=== PATIENT | female | born 1950 | race Caucasian/White ===

== ENCOUNTER 2020-02-12 14:16 | Emergency (ER) | payer MEDICARE, SELFPAY ==
--- NOTE | ~2020-02-12 | XR_ITS ---
EXAMINATION: XR chest 2V DATE: 02/12/2020 14:43 INDICATION: Shortness of breath and mid chest pressure TECHNIQUE: AP and lateral views of the chest are obtained. COMPARISON: 02/28/2018 FINDINGS: There are minimal airspace opacities of the lung bases. There is no pleural effusion or pne umothorax. The cardiomediastinal silhouette is normal. There are bridging osteophytes at multiple lev els in the spine, consistent with diffuse idiopathic skeletal hyperostosis (DISH). Partially imaged o rthopedic hardware is noted in the proximal right humerus. There are multiple healed left-sided rib f ractures. IMPRESSION: 1. Minimal airspace opacities of the lung bases, consistent with atelectasis versus pneumonia. Reviewed, dictated and finalized at location A. IMPRESSION: 1. Minimal airspace opacities of the lung bases, consistent with atelectasis ve rsus pneumonia.
--- NOTE | 2020-02-12 14:19 | ECG_ITS ---
Measurements Intervals [place] Rate: 110 P: NE: 0 QRS: -26 QRSD: 78 T: 54 QT: 323 QTc: 437 Interpretive Statements ECTOPIC ATRIAL OR JUNCTIONAL TACHYCARDIA LOW QRS VOLTAGE IN PRECORDIAL LEADS CANNOT RULE OUT SEPTAL INFARCT, AGE INDETERMINATE INFERIOR INFARCT, AGE INDETERMINATE BORDERLINE ST-T WAVE ABNORMALITY- HIGH LATERAL LEADS BASELINE ARTIFACT- I, II, AVR, V5 ABNORMAL ECG Electronically Signed On 02-12-2020 14:29:30 CDT by Iván Mclaughlin D.O.
[2020-02-12 14:20] VITALS: BP 147/84; PULSE 101; PULSE 110; RESP 30; RESP 37; TEMP 36.8; O2SAT 98
[2020-02-12 14:44] LABS: Basophils Absolute Auto 0.1 K/mm3 (0.0-0.1); Basophils Percent Auto 0.9 % (0.2-1.2); Eosinophils Absolute Auto 0.2 K/mm3 (0-0.3); Eosinophils Percent Auto 2.3 % (0-4.4); Hemoglobin 11.9 g/dL (12.0-15.0); Immature Granulocyte Absolute 0.03 K/mm3 (0.00-0.031); Immature Granulocyte Percent A 0.5 % (0-0.5); Lymphocytes Absolute Auto 0.92 K/mm3 (0.9-3.2); Mean Corpuscular HGB Conc 29.8 g/dl (32-36); Mean Corpuscular Hemoglobin 23.2 pg (26-34); Mean Platelet Volume 10.2 fl (7.4-10.4); Monocytes Absolute Auto 0.4 K/mm3 (0.1-0.6); Monocytes Percent Auto 6.6 % (2.6-8.5); Neutrophils Percent Auto 75.7 % (45.5-73.1); Platelet Count Result 257 k/mm3 (150-375); Red Blood Count 5.13 M/mm3 (4.2-5.4); Red Cell Distribution Width 20.2 % (11.5-14.5); White Blood Count 6.6 K/mm3 (4.5-10.0)
[2020-02-12 14:50] LABS: Blood Urea Nitrogen 17 mg/dL (7-17); Calcium 8.7 mg/dL (8.4-10.2); Carbon Dioxide 28 mmol/L (22-30); Chloride 102 mmol/L (98-107); Estimated CRCL calculation 57 ml/min; Estimated Glomerular Filt Rate 49; Glucose 281 mg/dL (65-105); INR 1.2; Partial Thromboplastin Time 33.2 SECONDS (22.3-36.8); Potassium 4.4 mmol/L (3.4-5.0); Prothrombin Time 14.6 Seconds (11.1-14.7); Sodium 138 mmol/L (137-145)
[2020-02-12 14:54] LABS: Hypochromasia 1+ (NORMAL); Ovalocytes 1+ (NORMAL); Platelet Estimate Adequate (Adequate)
[2020-02-12] MEDS: ASPIRIN 81 MG CHEWABLE TABLET 324 MG PO (14:59)
[2020-02-12 15:00] VITALS: BP 143/84; PULSE 101; RESP 23; O2SAT 98
[2020-02-12 15:04] LABS: NT Pro B Type Natriuretic Pept 1360 PG/ML (5-100)
[2020-02-12 15:05] LABS: Troponin I < 0.012 ng/mL (0.000-0.034)
[2020-02-12 16:00] VITALS: BP 149/94; PULSE 113; RESP 20; O2SAT 96
--- NOTE | 2020-02-12 16:44 | ED.SOB ---
HPI - SOB/Dyspnea General Chief Complaint: Shortness of Breath/Dyspnea Stated Complaint: sob/cp/hand swelling Time Seen by Provider: 02/12/20 15:20 History of Present Illness HPI Narrative: Patient presents to the ER on the advice of her primary care physician. She was sent here for a 10 pound weight gain in 2 months time. She says her legs are so swollen and her abdomen is so distended, that she is uncomfortable. She also complains of persistent tachycardia. She has had insomnia, and a lot of stress at home, because additional homeless family members have moved in with her. She says her appetite is not increased and she barely eats, and she takes her insulin 70/30 twice a day. She also has an television producer. She said her last hemoglobin A1c was 6.3. She has not been sick no cough cold fever throwing up diarrhea. She does not smoke rarely drinks and does not do drugs. She is a retired nurse. Current consulting psychiatrist is at [facility]. Related Data Home Medications Medication Instructions Recorded Confirmed aspirin 81 mg tablet,delayed 81 mg PO DAILY 11/12/19 02/11/20 release doxazosin 2 mg tablet 2 mg PO DAILY 11/12/19 02/11/20 duloxetine 60 mg capsule,delayed 60 mg PO DAILY 11/12/19 02/11/20 release furosemide 80 mg tablet 80 mg PO QAM 11/12/19 02/11/20 glimepiride 2 mg tablet 2 mg PO QAM 11/12/19 02/11/20 insulin aspar prot-insulin aspart 25 unit SUB-Q DAILY 11/12/19 02/11/20 100 unit/mL (70-30) subcutaneous pen losartan 100 mg tablet 100 mg PO DAILY 11/12/19 02/11/20 metoprolol tartrate 50 mg tablet 50 mg PO DAILY 11/12/19 02/11/20 nifedipine 90 mg tablet,extended 90 mg PO DAILY 11/12/19 02/11/20 release Allergies Allergy/AdvReac Type Severity Reaction Status Date / Time adhesive Allergy Unknown Unknown Verified 02/12/20 14:32 alcohol Allergy Unknown Unknown Verified 02/12/20 14:32 lisinopril Allergy Unknown Unknown Verified 02/12/20 14:29 milk Allergy Unknown Unknown Verified 02/12/20 14:32 monosodium glutamate Allergy Unknown Unknown Verified 02/12/20 14:32 Review of Systems Review of Systems: Narrative: CONSTITUTIONAL: Denies fever, chills, or sweats. EYES: Denies visual changes, redness, or discharge. ENT: Denies rhinorrhea, congestion, sore throat, or otalgia. CARDIOVASCULAR: Denies chest pain, but complains of swelling in her legs, and tachycardia. RESPIRATORY: Denies cough or dyspnea. GASTROINTESTINAL: Denies abdominal pain, nausea, vomiting, or diarrhea. GENITOURINARY: Denies dysuria or hematuria. SKIN: Denies rash or itching. MUSCULOSKELETAL: Denies back pain, joint pain, or myalgia. NEUROLOGIC: Denies headache, numbness, or weakness. PSYCHIATRIC: Denies anxiety or depression. [facility] Surgical History Surgical History H/O cardiac radiofrequency ablation History of hysterectomy History of tonsillectomy Family History Family History Father Family history of lung cancer, Onset Age: 68 Sibling Patient's sister is in good health Patient's brother is in good health Family history of arthritis Malignant neoplasm of prostate Mother Family history of Alzheimer's disease, Onset Age: 92 Grandparent Cerebrovascular accident, Onset Age: 88 Family history of primary malignant neoplasm of liver, Onset Age: 66 Son PTSD (post-traumatic stress disorder) Social History Social History Smoking status: Never smoker Alcohol intake: current Gender identity (if verbalized by the patient): Female Exam Narrative: Exam Narrative: GENERAL: Well-appearing, well-nourished, and in no acute distress. Overweight HEAD: Normocephalic, atraumatic. EYES: PERRLA and EOMI. ENT: Nares clear, no rhinorrhea or epistaxis. Mucous membranes moist. NECK: Supple. CHEST: Clear to auscultation. No respiratory distress.
[2020-02-12] MEDS: FUROSEMIDE INJ 40 MG/4 ML VIAL IV PUSH (16:54)
[2020-02-12 17:00] VITALS: BP 151/86; PULSE 116; RESP 23; O2SAT 98
[2020-02-12 17:24] LABS: Troponin I < 0.012 ng/mL (0.000-0.034)
[2020-02-12 18:00] VITALS: BP 142/85; PULSE 112; RESP 21; O2SAT 97
[2020-02-12 19:00] VITALS: BP 150/88; PULSE 110; RESP 21; O2SAT 99
== END 2020-02-12 19:56 | disposition home or self-care (01) ==
PROVIDERS: Emergency Provider Emergency Medicine; PCP Family Medicine
DX: I50.9 Heart failure, unspecified (principal); R73.9 Hyperglycemia, unspecified; I47.1 Supraventricular tachycardia; Z79.82 Long term (current) use of aspirin; Z79.4 Long term (current) use of insulin; R94.31 Abnormal electrocardiogram [ECG] [EKG]; Z79.84 Long term (current) use of oral hypoglycemic drugs
CPT/HCPCS: 36415; 71046; 80048; 83036; 83880; 84443; 84484; 85025; 85610; 85730; 93005; 96374; 99284; A9270; J1940

== ENCOUNTER 2020-03-11 07:53 | Emergency (ER) | payer MEDICARE, SELFPAY ==
[2020-03-11] VITALS (10 sets, daily range): BP systolic 151–217; BP diastolic 67–109; PULSE 55–85; RESP 18–40; TEMP 37.2; O2SAT 82–100
--- NOTE | ~2020-03-11 | XR_ITS ---
XR chest 1V portable 03/11/2020 08:53 Indication: Shortness of breath Procedure: AP portable chest Comparison: Comparison to multiple prior studies sequentially, with oldest reviewed study dated 03/23. Findings: Cardiomegaly with interstitial edema. No pleural effusion or suspected pneumothorax. There are multiple healed left rib fractures. No acute osseous abnormality. Impression: 1: Cardiomegaly with interstitial edema. Reviewed, dictated and finalized at location A. Impression: 1: Cardiomegaly with interstitial edema.
--- NOTE | 2020-03-11 08:06 | ECG_ITS ---
Measurements Intervals [place] Rate: 81 P: [place]: 0 QRS: -31 QRSD: 101 T: 118 QT: 388 QTc: 451 Interpretive Statements SINUS RHYTHM WITH FIRST DEGREE AV BLOCK LOW QRS VOLTAGE IN PRECORDIAL LEADS BORDERLINE R WAVE PROGRESSION, ANTERIOR LEADS INFERIOR INFARCT, AGE INDETERMINATE BORDERLINE ST-T WAVE ABNORMALITY- HIGH LATERAL LEADS BASELINE ARTIFACT- I, II, AVR, V3 ABNORMAL ECG Electronically Signed On 03-11-2020 9:21:28 CDT by Iván Mclaughlin D.O.
--- NOTE | 2020-03-11 08:13 | ED.SOB ---
HPI - SOB/Dyspnea General Chief Complaint: Shortness of Breath/Dyspnea Stated Complaint: SOB Source: RN notes reviewed History of Present Illness HPI Narrative: Patient presents emergency department from home for shortness of breath. Patient states symptoms began approximately 3 days ago. She states is been associated with a cough is productive of yellow sputum. Patient states shortness of breath is worse with laying flat and activity. States she is normally not on oxygen. Patient states she has a history of CHF and COPD. Patient just had a cardioversion performed at [facility] on March 06. She states that she has been seen Dr. Jung as well for COPD and was recently started on amiodarone which I feel may be making the symptoms worse. Patient denies having fevers or chills chest pain abdominal pain. Patient states she is on Eliquis Related Data Home Medications Medication Instructions Recorded Confirmed aspirin 81 mg tablet,delayed 81 mg PO DAILY 11/12/19 02/11/20 release doxazosin 2 mg tablet 2 mg PO DAILY 11/12/19 02/11/20 duloxetine 60 mg capsule,delayed 60 mg PO DAILY 11/12/19 02/11/20 release furosemide 80 mg tablet 80 mg PO QAM 11/12/19 02/11/20 glimepiride 2 mg tablet 2 mg PO QAM 11/12/19 02/11/20 insulin aspar prot-insulin aspart 25 unit SUB-Q DAILY 11/12/19 02/11/20 100 unit/mL (70-30) subcutaneous pen losartan 100 mg tablet 100 mg PO DAILY 11/12/19 02/11/20 metoprolol tartrate 50 mg tablet 50 mg PO DAILY 11/12/19 02/11/20 nifedipine 90 mg tablet,extended 90 mg PO DAILY 11/12/19 02/11/20 release Allergies Allergy/AdvReac Type Severity Reaction Status Date / Time adhesive Allergy Unknown Unknown Verified 03/11/20 07:58 alcohol Allergy Unknown Unknown Verified 03/11/20 07:58 lisinopril Allergy Unknown Unknown Verified 03/11/20 07:58 milk Allergy Unknown Unknown Verified 03/11/20 07:58 monosodium glutamate Allergy Unknown Unknown Verified 03/11/20 07:58 Review of Systems Review of Systems: Narrative: Gen.: Denies fevers or chills ENT: Denies congestion Respiratory: See HPI CV: Denies chest pain or palpitations GI: Denies abdominal pain nausea, emesis or diarrhea Musculoskeletal: Denies back pain or muscle pain Neuro: Denies numbness, tingling, weakness or focal weakness Skin: Denies rash Except as documented, all other systems reviewed and negative [facility] Past Medical History Medical History (Updated 03/11/20 @ 13:34 by Kirk Modi DO) Afib CHF with unknown LVEF Chronic obstructive pulmonary disease Pulmonary hypertension Social History Social History Smoking status: Never smoker Alcohol intake: current Gender identity (if verbalized by the patient): Female Exam Narrative: Exam Narrative: APPEARANCE: Moderate respiratory distress, sitting upright in bed speaking in short phrases EYES: PERRL HEENT: Normocephalic, atraumatic, OMM RESPIRATORY: Moderate respiratory distress, sitting upright in bed, speaking in short phrases, decreased breath sounds in the bilateral bases with mild crackles CARDIOVASCULAR: Regular rate and rhythm without murmurs rubs or gallops. ABDOMINAL: Soft, nontender, nondistended, no rebound or guarding MUSCULOSKELETAl: Moves all extremities. No clubbing, cyanosis 3+ edema the bilateral lower extremities NEURO: Awake and alert. Following commands, speech normal, no focal deficits SKIN:: Warm, dry. No rashes lesions or abrasions PSYCHIATRIC: Normal affect/mood, Course Course Emergency Course: Discussed with patient who states that she is felt by cardiology at [facility]. Requesting transfer to [facility] Discussed with nurse practitioner for Dr. Patton. Comfortable with patient being transferred and requested I speak with the hospitalist service for transfer Discussed with Dr. Jennings for hospital service agrees with transfer at this time. This time we discusse
[2020-03-11] MEDS: methylPREDNISolone SOD SUCC 125 MG VIAL IV PUSH (08:17)
[2020-03-11 08:25] LABS: Alveolar/Arterial O2 Gradient 83.5 mmHg; Base Excess ABG 2.9 mEq/l (+/-2.0); Fractional Inspired Oxygen 28 %; HCO3 ABG 26.6 mEq/l (22.0-26.0); Oxygen Saturation ABG 95.3 % (95.0-100.0); Oxyhemoglobin 92.3 % THb (90.0-100.0); PCO2 ABG 37.8 mmHg (35.0-45.0); PO2 ABG 71.5 mmHg (80.0-100.0); PO2 FiO2 Ratio Arterial Blood 2.55 %; Total Hemoglobin 10.7 g/dL (12.0-18.0); pH ABG 7.466 (7.350-7.450)
[2020-03-11 08:26] LABS: Device NASAL CANNULA; Modified Allen's Test Pass; Site Drawn LEFT RADIAL
[2020-03-11 08:30] LABS: Basophils Percent Auto 0.5 % (0.2-1.2); Eosinophils Absolute Auto 0.2 K/mm3 (0-0.3); Hematocrit 34.3 % (37.0-47.0); Hemoglobin 10.5 g/dL (12.0-15.0); Immature Granulocyte Absolute 0.05 K/mm3 (0.00-0.031); Immature Granulocyte Percent A 0.6 % (0-0.5); Lymphocytes Absolute Auto 0.83 K/mm3 (0.9-3.2); Lymphocytes Percent Auto 9.8 % (18.3-44.2); Mean Corpuscular HGB Conc 30.6 g/dl (32-36); Mean Corpuscular Hemoglobin 23.8 pg (26-34); Mean Corpuscular Volume 77.8 fl (80-100); Mean Platelet Volume 10.3 fl (7.4-10.4); Monocytes Absolute Auto 0.5 K/mm3 (0.1-0.6); Neutrophils Absolute Auto 6.9 K/mm3 (1.3-6.7); Neutrophils Percent Auto 81.1 % (45.5-73.1); Nucleated Red Blood Cells Perc 0.2 % (0.0-0.2); Platelet Count Result 286 k/mm3 (150-375); Red Blood Count 4.41 M/mm3 (4.2-5.4); Red Cell Distribution Width 19.9 % (11.5-14.5); White Blood Count 8.5 K/mm3 (4.5-10.0)
[2020-03-11 08:44] LABS: Lactic Acid Reflex 1.7 mmol/L (0.7-2.1)
[2020-03-11 08:49] LABS: Blood Urea Nitrogen 27 mg/dL (7-17); Calcium 9.1 mg/dL (8.4-10.2); Carbon Dioxide 27 mmol/L (22-30); Chloride 104 mmol/L (98-107); Estimated CRCL calculation 46 ml/min; Estimated Glomerular Filt Rate 37; Glucose 102 mg/dL (65-105); Potassium 4.4 mmol/L (3.4-5.0); Sodium 138 mmol/L (137-145)
[2020-03-11 08:52] LABS: Prothrombin Time 22.4 Seconds (11.1-14.7)
[2020-03-11 08:53] LABS: Partial Thromboplastin Time 32.9 SECONDS (22.3-36.8)
[2020-03-11 09:00] LABS: Troponin I < 0.012 ng/mL (0.000-0.034)
[2020-03-11 09:19] LABS: NT Pro B Type Natriuretic Pept 867 PG/ML (5-100)
[2020-03-11] MEDS: FUROSEMIDE INJ 40 MG/4 ML VIAL IV PUSH (09:30)
[2020-03-11] MEDS: APIXABAN 5 MG TABLET PO (10:44)
[2020-03-11] MEDS: NIFEdipine 30 MG TAB.ER.24 90 MG PO (10:44)
[2020-03-11] MEDS: METOPROLOL TARTRATE 50 MG TAB PO (10:44)
--- NOTE | 2020-03-11 11:32 | PC.NURSE ---
patient given bed #[phone] at [facility] RN will call back for report
== END 2020-03-11 13:33 | disposition short-term general hospital (02) ==
LOC: ANHED 08:00
PROVIDERS: Emergency Provider Emergency Medicine; PCP Family Medicine
DX: I50.9 Heart failure, unspecified (principal); J44.9 Chronic obstructive pulmonary disease, unspecified; I27.20 Pulmonary hypertension, unspecified; I48.91 Unspecified atrial fibrillation; Z79.82 Long term (current) use of aspirin; Z79.84 Long term (current) use of oral hypoglycemic drugs; Z79.4 Long term (current) use of insulin
CPT/HCPCS: 36415; 36600; 71045; 80048; 82805; 83605; 83880; 84484; 85025; 85610; 85730; 87040; 93005; 96374; 96375; 99285; A9270; J1940; J2930

== ENCOUNTER 2020-06-06 06:59 | Outpatient (NON) | payer MEDICARE, SELFPAY ==
[2020-06-06 18:21] LABS: SARS-CoV-2 RNA PCR Negative
== END 2020-06-06 07:00 ==
PROVIDERS: PCP Family Medicine; Visit Provider Family Medicine
DX: R09.89 Other specified symptoms and signs involving the circulatory and respiratory systems (principal); Z20.828 Contact with and (suspected) exposure to other viral communicable diseases
CPT/HCPCS: 87635; C9803; U0003

== ENCOUNTER 2021-03-03 15:34 | Outpatient (CLI) | payer MEDICARE, SELFPAY ==
--- NOTE | ~2021-03-03 | XR_ITS ---
XR knee LT 2V DATE: 03/03/2021 16:04 INDICATION: Left knee pain TECHNIQUE: AP and lateral views COMPARISON: 02/28/2018 left knee FINDINGS: There is diffuse osteopenia. There is mild suprapatellar knee joint effusion. There is periarticular spurring of the patella consistent with osteoarthritis. There is irregularity of the patellar articular surface consistent with chondromalacia. There is chondrocalcinosis of the medial and lateral compartments. No fracture or dislocation, periosteal reaction or bone destruction is detected. Femoral and minimal popliteal artery calcification. IMPRESSION: Osteopenia Chondromalacia patella Mild osteoarthritis at the patellofemoral joint Chondrocalcinosis Reviewed, dictated and finalized at location A.
--- NOTE | ~2021-03-03 | XR_ITS ---
XR shoulder RT min 2V DATE: 03/03/2021 16:04 INDICATION: Fall. Right shoulder bruising and limited range of motion TECHNIQUE: 4 views COMPARISON: 03/17/2016 right shoulder FINDINGS: Intramedullary ho and screws are noted in the proximal humerus. There has been interval se eddie increased spurring at the severely narrowed right glenohumeral joint since 03/17/2016 consistent with severe osteoarthritis. There is chronic rotator cuff atrophy with spurring at the apposing humeral head and acromion process . Diffuse osteopenia. No fracture, dislocation, periosteal reaction or bone destruction is detected. Diffuse idiopathic skeletal hyperostosis of the thoracic spine. IMPRESSION: Very severe hypertrophic osteoarthritic change at the glenohumeral joint Chronic rotator cuff atrophy Diffuse osteopenia Postoperative change of the right humerus Diffuse idiopathic skeletal hyperostosis Reviewed, dictated and finalized at location A.
== END 2021-03-03 15:35 | disposition home or self-care (01) ==
LOC: ANHIMG 15:45
PROVIDERS: PCP Emergency Medicine; Visit Provider Emergency Medicine
DX: M22.42 Chondromalacia patellae, left knee (principal); M17.12 Unilateral primary osteoarthritis, left knee; M85.862 Other specified disorders of bone density and structure, left lower leg; M85.811 Other specified disorders of bone density and structure, right shoulder
CPT/HCPCS: 73030; 73560

== ENCOUNTER → 2021-03-19 12:29 | Outpatient (CLI) | payer MEDICARE, SELFPAY ==
--- NOTE | ~2021-03-19 | MR_ITS ---
EXAMINATION: MR shoulder RT wo con DATE: 03/19/2021 13:18 INDICATION: Unspecified osteoarthritis of the right shoulder presenting with right shoulder pain and limited range of motion post fall 3 weeks prior TECHNIQUE: Magnetic resonance imaging (MRI) of the right shoulder was performed without intravenous c ontrast. Sequences included axial fluid sensitive FSE STIR, coronal oblique fluid sensitive FSE STIR, coronal oblique PD-weighted FSE, sagittal fluid sensitive FSE STIR, and sagittal T1-weighted SE. COMPARISON: Right shoulder radiographs dated 03/03/2021 FINDINGS: Bones/other: Old healed fracture of the proximal right humerus with antegrade intramedullary ho fixation. There a re a few interlocking screws at the level of the humeral head. There is prominent heterotopic ossific ation along the anterior margin of the humeral head. Advanced right glenohumeral osteoarthritis with extensive full-thickness cartilage loss and remodeling of the articular surfaces of both the glenoid and humeral head. The majority the labrum is absent consistent with likely chronic degeneration with small moderate residual frayed meniscal tissue seen along the anterior glenoid. The long head of the biceps tendon is not visualized and likely torn and retracted below the level of the intertubercular groove which is not clearly visualized likely due to deformity from the prior fracture and magnetic f ield artifact resulting from the internal fixation instrumentation. Rotator cuff: Likely chronic full or near full-thickness articular sided tear of the supraspinatus tendon. As previ ously noted there is prominent heterotopic ossification extending along the normal superior and middl e facet footplates of the rotator cuff. There is moderate to severe fatty atrophy of the supraspinatu s muscle belly. The tear margin is retracted medially to the level of the superior rim of the glenoid . A couple small heterotopic ossicles are seen along within low signal intensity bursal sided fibers of the tendon which extends towards the ossification along the greater tuberosity but which have a la x appearance and is remaining ligament fibers are of doubtful functional integrity. The tear appears to extend posteriorly to involve the anterior third of the infraspinatus tendon. The posterior two th irds of the infraspinatus tendon appears to remain grossly intact with mild tendinopathy. Additional heterotopic ossification is seen at the distal insertion of the otherwise normal teres minor tendon. Mild tendinopathy of the infraspinatus muscle belly. Mild subscapularis tendinopathy without discrete tear. Coracoacromial arch: Remodeling of the undersurface of the thinned acromion consistent with chronic rotator cuff tear with curved undersurface on both the sagittal and coronal imaging planes which conforms to the radius of curvature of a prominent marginal osteophytes along the superolateral aspect of the radial head. Mod erate acromioclavicular osteoarthritis. Fluid: Small glenohumeral joint effusion. Small amount of fluid in the subacromial/subdeltoid bursa. IMPRESSION: 1. Old healed internally fixed fracture of the proximal right humerus with likely secondary advanced glenohumeral osteoarthritis. 2. Chronic full/near full-thickness tear of the supraspinatus and anterior third of the infraspinatus tendon with severe fatty atrophy of the supraspinatus and mild of the infraspinatus muscle bellies a nd with chronic remodeling of the undersurface of the acromion. 3. Complete tear of the long head biceps tendon. Reviewed, dictated and finalized at location A. IMPRESSION: 1. Old healed internally fixed fracture of the proximal right humerus with like ly secondary advanced glenohumeral osteoarthritis. 2. Ch
== END ==
PROVIDERS: PCP Emergency Medicine; Visit Provider Emergency Medicine
DX: M19.90 Unspecified osteoarthritis, unspecified site (principal); Z87.81 Personal history of (healed) traumatic fracture; M75.101 Unspecified rotator cuff tear or rupture of right shoulder, not specified as traumatic; M62.511 Muscle wasting and atrophy, not elsewhere classified, right shoulder; S46.111A Strain of muscle, fascia and tendon of long head of biceps, right arm, initial encounter
CPT/HCPCS: 73221

== ENCOUNTER 2021-05-21 10:10 | Emergency (ER) | payer MEDICARE, SELFPAY ==
--- NOTE | ~2021-05-21 | CT_ITS ---
EXAMINATION: CT brain wo con DATE: 05/21/2021 11:24 INDICATION: Headache. Diplopia. TECHNIQUE: Computed tomography (CT) of the head was performed without intravenous contrast. The mA wa s adjusted according to patient size. Iterative reconstruction technique was employed. The dose-lengt h product was 605.33 mGy-cm. COMPARISON: Head CT 02/28/2018 FINDINGS: There is no intracranial hemorrhage, acute infarction, or abnormal intracranial mass lesion . There is an old lacunar infarct in right thalamus. The ventricles are normal in size. The paranasal sinuses are clear. The mastoid air cells are normal. There are likely changes of ocular lens replace ment surgeries. IMPRESSION: 1. Old lacunar infarct in right thalamus. Reviewed, dictated and finalized at location B.
--- NOTE | ~2021-05-21 | CT_ITS ---
EXAMINATION: CT sinus wo con DATE: 05/21/2021 11:23 INDICATION: Headache, facial pain and blurry vision TECHNIQUE: Computed tomography (CT) of the paranasal sinuses was performed without intravenous contra st. The dose-length product was 277.13 mGy-cm. Automated exposure control and iterative reconstructio n technique were employed. COMPARISON: CT dated 02/28/2018 FINDINGS: Paranasal sinuses and mastoids are pneumatized. No significant mucosal thickening. There is leftward nasal septal deviation. Ostiomeatal units are patent. Mastoids are pneumatized. There is in tracranial atherosclerosis. No depressed skull fractures. IMPRESSION: 1. No significant paranasal sinus disease. Reviewed, dictated and finalized at location A.
--- NOTE | 2021-05-21 10:14 | ECG_ITS ---
Measurements Intervals [place] Rate: 101 P: -72 [place]: 224 QRS: -26 QRSD: 97 T: 56 QT: 353 QTc: 458 Interpretive Statements SINUS TACHYCARDIA WITH FIRST DEGREE AV BLOCK DELAYED PRECORDIAL R/S TRANSITION VOLTAGE CRITERIA FOR LVH BASELINE ARTIFACT- I, II, III, AVR, AVL ABNORMAL ECG Electronically Signed On 05-21-2021 10:25:04 CDT by Iván Mclaughlin D.O.
[2021-05-21 10:18] VITALS: BP 121/62; PULSE 100; RESP 18; TEMP 36.4; O2SAT 100
[2021-05-21 10:44] LABS: Basophils Percent Auto 0.4 % (0.2-1.2); Eosinophils Absolute Auto 0.2 K/mm3 (0-0.3); Eosinophils Percent Auto 2.3 % (0-4.4); Hematocrit 39.8 % (37.0-47.0); Hemoglobin 11.8 g/dL (12.0-15.0); Immature Granulocyte Absolute 0.03 K/mm3 (0.00-0.031); Immature Granulocyte Percent A 0.4 % (0-0.5); Lymphocytes Absolute Auto 1.17 K/mm3 (0.9-3.2); Lymphocytes Percent Auto 15.6 % (18.3-44.2); Mean Corpuscular HGB Conc 29.6 g/dl (32-36); Mean Corpuscular Volume 80.9 fl (80-100); Mean Platelet Volume 9.6 fl (7.4-10.4); Monocytes Absolute Auto 0.5 K/mm3 (0.1-0.6); Monocytes Percent Auto 6.7 % (2.6-8.5); Neutrophils Absolute Auto 5.6 K/mm3 (1.3-6.7); Neutrophils Percent Auto 74.6 % (45.5-73.1); Platelet Count Result 222 k/mm3 (150-375); Red Blood Count 4.92 M/mm3 (4.2-5.4); Red Cell Distribution Width 17.2 % (11.5-14.5); White Blood Count 7.5 K/mm3 (4.5-10.0)
[2021-05-21 10:56] LABS: INR 1.1; Prothrombin Time 14.2 Seconds (11.1-14.7)
[2021-05-21 10:57] LABS: Partial Thromboplastin Time 31.2 SECONDS (22.3-36.8)
[2021-05-21 10:58] LABS: Anion Gap 8 mmol/L (8-16); Blood Urea Nitrogen 25 mg/dL (7-17); Calcium 8.4 mg/dL (8.4-10.2); Carbon Dioxide 29 mmol/L (22-30); Chloride 100 mmol/L (98-107); Estimated CRCL calculation 55 ml/min; Estimated Glomerular Filt Rate 49; Glucose 214 mg/dL (65-110); Potassium 3.6 mmol/L (3.4-5.0); Sodium 137 mmol/L (137-145)
[2021-05-21 11:11] LABS: Troponin I < 0.012 ng/mL (0.000-0.034)
[2021-05-21 11:45] VITALS: BP 143/87; PULSE 101; RESP 24; O2SAT 98
[2021-05-21 13:08] LABS: Erythrocyte Sedimentation Rate 23 mm/hr (0-20)
--- NOTE | 2021-05-21 14:21 | ED.HA ---
HPI - Headache General Chief Complaint: Headache Stated Complaint: headache x 2 weeks, palpitations Time Seen by Provider: 05/21/21 11:28 Source: patient Mode of arrival: ambulatory Limitations: no limitations History of Present Illness HPI Narrative: 70-year-old female History of A. fib, diabetes, hypertension Here because of a headache of 2 weeks duration She describes a subacute onset of symptoms which are primarily in the left face and around the left eye and it is more or less held study for 2 weeks She thinks her near vision may be a little bit blurry in her left eye during this time There is no diplopia and no other neurologic symptoms She does not have sinus drainage or congestion She does not have a fever Her symptoms are not changed today just her PCP was out of the office on vacation Related Data Home Medications Medication Instructions Recorded Confirmed apixaban 5 mg tablet 5 mg PO BID 10/28/20 bisacodyl 5 mg tablet 5 mg PO DAILY PRN 10/28/20 furosemide 80 mg tablet 80 mg PO BID 10/28/20 glimepiride 1 mg tablet 1 mg PO DAILY tablet 10/28/20 insulin human U-100 [id number] See Rx Instructions .ROUTE .COMPLEX 10/28/20 70-30 mix 100 unit/mL subcutaneous susp metoprolol tartrate 50 mg tablet 50 mg PO BID tablet 10/28/20 vit C 250 mg-vit E 200 unit-zinc 1 tablet PO BID 10/28/20 12.5 mg-copper 1 tw-[id number]-lwkgmc tablet Allergies Allergy/AdvReac Type Severity Reaction Status Date / Time adhesive Allergy Unknown Unknown Verified 05/21/21 12:18 alcohol Allergy Unknown Unknown Verified 05/21/21 12:18 Beef Containing Products Allergy Unknown Unknown Verified 05/21/21 12:18 egg Allergy Unknown Unknown Verified 05/21/21 12:18 lisinopril Allergy Unknown Unknown Verified 05/21/21 12:18 milk Allergy Unknown Unknown Verified 05/21/21 12:18 monosodium glutamate Allergy Unknown Unknown Verified 05/21/21 12:18 nickel Allergy Unknown Unknown Verified 05/21/21 12:18 wheat Allergy Unknown Unknown Verified 05/21/21 12:18 corn Allergy Gastrointestinal Verified 05/21/21 12:18 Upset Fragrances Allergy Unknown Unknown Uncoded 01/29/21 10:35 Makeup Allergy Unknown unknown Uncoded 04/29/21 10:35 Review of Systems Review of Systems: All systems reviewed & are unremarkable except as noted in HPI and below Constitutional: Constitutional: Reports no additional constitutional complaints, Denies chills, Reports fatigue, Denies fever(s), Denies headache(s) and Denies weakness Eyes: Eyes: Reports no additional eye complaints, Reports change in vision and Denies photophobia ENT: Denies vertigo, Denies headache(s), Denies nasal congestion and Denies sore throat Cardiovascular: Cardiovascular: Denies chest pain and Denies dyspnea Respiratory: Respiratory: Denies cough and Denies dyspnea Gastrointestinal: Gastrointestinal: Denies abdominal pain, Denies diarrhea and Denies vomiting Genitourinary: Genitourinary: Denies urinary frequency and Denies dysuria Musculoskeletal: Musculoskeletal: Denies deformity, Denies arthralgias, Denies joint swelling and Denies numbness Integumentary/Breasts: Skin/Breast: Denies rash and Denies wounds Neurologic: Denies headache(s), Denies focal weakness and Denies numbness Psychiatric: Psychiatric: Reports no additional psychiatric complaints Endocrine: Endocrine: Reports no additional endocrine complaints Hematologic/Lymphatic: Hematologic/Lymphatic: Reports no additional hematologic/lymphatic complaints Allergic/Immunologic: Allergic/Immunologic: Reports no additional allergic/immunologic complaints PMFSH Past Medical History Medical History Afib CHF with unknown LVEF Chronic obstructive pulmonary disease Fibroid tumor Hemorrhoids Mononucleosis Pulmonary hypertension Surgical History Surgical History H/O cardiac radiofrequency ablation H/O lumbar disc
[2021-05-21 14:39] VITALS: BP 127/82; PULSE 101; RESP 18; O2SAT 99
[2021-05-21 14:54] LABS: Troponin I < 0.012 ng/mL (0.000-0.034)
== END 2021-05-21 14:44 | disposition home or self-care (01) ==
PROVIDERS: Emergency Medicine; Emergency Provider Emergency Medicine; PCP Emergency Medicine
DX: R51.9 Headache, unspecified (principal); E11.9 Type 2 diabetes mellitus without complications; I48.91 Unspecified atrial fibrillation; I50.9 Heart failure, unspecified; I11.0 Hypertensive heart disease with heart failure; J44.9 Chronic obstructive pulmonary disease, unspecified; I27.20 Pulmonary hypertension, unspecified; Z79.4 Long term (current) use of insulin; Z79.01 Long term (current) use of anticoagulants; R00.0 Tachycardia, unspecified; I44.0 Atrioventricular block, first degree; R94.31 Abnormal electrocardiogram [ECG] [EKG]
CPT/HCPCS: 36415; 70450; 70486; 80048; 84484; 85025; 85610; 85652; 85730; 86140; 93005; 99284

== ENCOUNTER → 2021-10-15 02:13 | Outpatient (CLI) | payer MEDICARE, SELFPAY ==
[2021-10-15 20:41] LABS: SARS-CoV-2 RNA PCR Positive
== END ==
PROVIDERS: PCP Emergency Medicine; Visit Provider Nurse Practitioner Family
DX: U07.1 COVID-19 (principal)
CPT/HCPCS: C9803; U0003; U0005

== ENCOUNTER 2022-06-18 09:35 | Emergency (ER) | payer MEDICARE, SELFPAY ==
[2022-06-18 09:46] VITALS: BP 114/74; PULSE 81; RESP 16; TEMP 36.9; O2SAT 96
--- NOTE | 2022-06-18 09:59 | ED.GENADULT ---
HPI - General Adult General Chief complaint: Upper Respiratory Infection Stated complaint: COUGH/WEAKNESS/CONGESTION History of Present Illness HPI narrative: Patient is a 71-year-old female who presents to the [facility] via [facility] accompanied by her adult daughter for evaluation of upper respiratory symptoms that began 3 days ago. Additionally, she reports dry cough, laryngitis, and left ear pain. Denies taking OTC meds for symptoms. Hot tea and soup provide some relief. She reports that her symptoms are worse in the mornings. She is fully vaccinated against COVID and influenza. Of note, patient wears home O2 at 2 L. She does not have oxygen tank with her since it ran out of batteries . She also reports multiple family members in the household have been ill with upper respiratory symptoms. Related Data Home Medications Medication Instructions Recorded Confirmed apixaban 5 mg tablet (Eliquis) 5 mg PO BID 10/28/20 12/09/21 bisacodyl 5 mg tablet 5 mg PO DAILY PRN 10/28/20 12/09/21 furosemide 80 mg tablet 80 mg PO BID 10/28/20 12/09/21 glimepiride 1 mg tablet 1 mg PO DAILY 10/28/20 12/09/21 insulin human U-100 NPH-regulr See Rx Instructions .Route .COMPLEX 10/28/20 12/09/21 70-30 mix 100 unit/mL subcutaneous susp (Novolin 70/30 U-100 Insulin) vit C 250 mg-vit E 200 unit-zinc 1 tablet PO BID 10/28/20 12/09/21 12.5 mg-copper 1 [id number] tablet (ICaps AREDS2 (copper citrate)) metoprolol tartrate 100 mg tablet 100 mg PO BID 12/09/21 12/09/21 Allergies Allergy/AdvReac Type Severity Reaction Status Date / Time adhesive Allergy Unknown Unknown Verified 12/09/21 09:33 alcohol Allergy Unknown Unknown Verified 12/09/21 09:33 Beef Containing Products Allergy Unknown Unknown Verified 12/09/21 09:33 egg Allergy Unknown Unknown Verified 12/09/21 09:33 lisinopril Allergy Unknown Unknown Verified 12/09/21 09:33 milk Allergy Unknown Unknown Verified 12/09/21 09:33 monosodium glutamate Allergy Unknown Unknown Verified 12/09/21 09:33 nickel Allergy Unknown Unknown Verified 12/09/21 09:33 wheat Allergy Unknown Unknown Verified 12/09/21 09:33 corn Allergy Gastrointestinal Verified 12/09/21 09:33 Upset Fragrances Allergy Unknown Unknown Uncoded 12/09/21 09:33 Makeup Allergy Unknown unknown Uncoded 12/09/21 09:33 Review of Systems Review of Systems: Denies fever, chills, sweats, change in appetite, poor p.o. intake, sore throat, sinus problems, rhinorrhea, abdominal pain, nausea, vomiting, diarrhea, shortness of breath, wheezing, cyanosis, chest pain, and heart palpitations PMFSH Past Medical History Medical History Afib CHF with unknown LVEF Chronic obstructive pulmonary disease Fibroid tumor Hemorrhoids Mononucleosis Pulmonary hypertension Surgical History Surgical History H/O cardiac radiofrequency ablation H/O lumbar discectomy (~1982) History of hysterectomy (~1994) History of tonsillectomy (~1957) Family History Family History Father Family history of lung cancer, Onset Age: 68 Sibling Patient's sister is in good health Patient's brother is in good health Family history of arthritis Malignant neoplasm of prostate Mother Family history of Alzheimer's disease, Onset Age: 92 Grandparent Cerebrovascular accident, Onset Age: 88 Family history of primary malignant neoplasm of liver, Onset Age: 66 Son PTSD (post-traumatic stress disorder) Social History Social History Smoking status: Never smoker Alcohol intake: current Alcohol use details: Patient drinks 1 to 2 drinks per Substance use: current Substance use type: marijuana Other substance usage details: Patient eats marijuana chocolate candy for Fibromyalgia once
== END 2022-06-18 10:20 | disposition home or self-care (01) ==
PROVIDERS: Emergency Provider Nurse Practitioner Family; PCP Physician Assistant
DX: J06.9 Acute upper respiratory infection, unspecified (principal); H66.92 Otitis media, unspecified, left ear; I48.91 Unspecified atrial fibrillation; I50.9 Heart failure, unspecified
CPT/HCPCS: 99213; G0463

== ENCOUNTER 2022-07-14 22:41 | Emergency (ER) | payer MEDICARE, SELFPAY ==
--- NOTE | ~2022-07-14 | XR_ITS ---
EXAMINATION: XR lumbar spine 2-3V DATE: 07/15/2022 00:06 INDICATION: Low back pain. TECHNIQUE: 3 views of lumbar spine were obtained. COMPARISON: None. FINDINGS: There is 10 degrees dextroscoliosis of lumbar spine. There is 3 mm retrolisthesis of L2 on L3 and L3 on L4. Vertebral body heights are normal. There is moderately decreased disc height at L1-L 2, severely decreased disc height at L2-L3, moderately decreased disc height at L3-L4, and severely d ecreased disc height at L4-L5 with endplate remodeling. There is multilevel facet joint osteoarthriti s. IMPRESSION: 1. Severe lumbar spondylosis. 2. Lumbar dextroscoliosis. Reviewed, dictated and finalized at location A.
[2022-07-14 22:42] VITALS: BP 130/70; PULSE 75; RESP 20; TEMP 36.8; O2SAT 98
[2022-07-14] MEDS: methocarbamoL 500 MG TABLET PO (23:50)
--- NOTE | 2022-07-15 00:06 | ED.BACK ---
HPI - Back Pain/Injury General Chief Complaint: Back Pain/Injury Stated Complaint: low back pain Time Seen by Provider: 07/14/22 22:55 History of Present Illness HPI Narrative: 71-year-old female presents emergency room via EMS for evaluation of acute on chronic low back pain. Patient states she bent over to clean the dishes when she felt a pulling sensation in her lower back. Patient states she initially had some numbness and tingling down her left leg but that is since resolved. Patient reports initially her pain level was a 10, but since laying on a hard surface her pain level has been reduced to a 5. Patient denies any saddle anesthesia. Denies any injury or trauma to her lower back. Denies any changes to her bowel or bladder habits. Pain is worse with rotation, lateral bending forward flexion. Related Data Home Medications Medication Instructions Recorded Confirmed apixaban 5 mg tablet (Eliquis) 5 mg PO BID 10/28/20 12/09/21 bisacodyl 5 mg tablet 5 mg PO DAILY PRN 10/28/20 12/09/21 furosemide 80 mg tablet 80 mg PO BID 10/28/20 12/09/21 glimepiride 1 mg tablet 1 mg PO DAILY 10/28/20 12/09/21 insulin human U-100 NPH-regulr See Rx Instructions .Route .COMPLEX 10/28/20 12/09/21 70-30 mix 100 unit/mL subcutaneous susp (Novolin 70/30 U-100 Insulin) vit C 250 mg-vit E 200 unit-zinc 1 tablet PO BID 10/28/20 12/09/21 12.5 mg-copper 1 [id number] tablet (ICaps AREDS2 (copper citrate)) metoprolol tartrate 100 mg tablet 100 mg PO BID 12/09/21 12/09/21 Allergies Allergy/AdvReac Type Severity Reaction Status Date / Time adhesive Allergy Unknown Unknown Verified 12/09/21 09:33 alcohol Allergy Unknown Unknown Verified 12/09/21 09:33 Beef Containing Products Allergy Unknown Unknown Verified 12/09/21 09:33 egg Allergy Unknown Unknown Verified 12/09/21 09:33 lisinopril Allergy Unknown Unknown Verified 12/09/21 09:33 milk Allergy Unknown Unknown Verified 12/09/21 09:33 monosodium glutamate Allergy Unknown Unknown Verified 12/09/21 09:33 nickel Allergy Unknown Unknown Verified 12/09/21 09:33 wheat Allergy Unknown Unknown Verified 12/09/21 09:33 corn Allergy Gastrointestinal Verified 12/09/21 09:33 Upset Fragrances Allergy Unknown Unknown Uncoded 12/09/21 09:33 Makeup Allergy Unknown unknown Uncoded 12/09/21 09:33 Review of Systems Review of Systems: CONSTITUTIONAL: Denies fever, chills, or sweats. EYES: Denies visual changes, redness, or discharge. ENT: Denies rhinorrhea, congestion, sore throat, or otalgia. CARDIOVASCULAR: Denies chest pain, palpitations, or edema. RESPIRATORY: Denies cough or dyspnea. GASTROINTESTINAL: Denies abdominal pain, nausea, vomiting, or diarrhea. GENITOURINARY: Denies dysuria or hematuria. SKIN: Denies rash or itching. MUSCULOSKELETAL: Reports lower back pain NEUROLOGIC: Denies headache, numbness, dizziness, or weakness. PSYCHIATRIC: Denies anxiety or depression. [facility] Past Medical History Medical History Afib CHF with unknown LVEF Chronic obstructive pulmonary disease Fibroid tumor Hemorrhoids Mononucleosis Pulmonary hypertension Surgical History Surgical History H/O cardiac radiofrequency ablation H/O lumbar discectomy (~1982) History of hysterectomy (~1994) History of tonsillectomy (~1957) Family History Family History Father Family history of lung cancer, Onset Age: 68 Sibling Patient's sister is in good health Patient's brother is in good health Family history of arthritis Malignant neoplasm of prostate Mother Family history of Alzheimer's disease, Onset Age: 92 Grandparent Cerebrovascular accident, Onset Age: 88 Family history of primary malignant neoplasm of liver, Onset Age: 66 Son PTSD (post-traumatic stress disorder) Social History Social History (Re
== END 2022-07-15 00:31 | disposition home or self-care (01) ==
LOC: ANHED 07-15 00:13
PROVIDERS: Emergency Provider Nurse Practitioner Family; PCP Physician Assistant
DX: M54.50 Low back pain, unspecified (principal); I48.91 Unspecified atrial fibrillation; I50.9 Heart failure, unspecified; J44.9 Chronic obstructive pulmonary disease, unspecified; I27.20 Pulmonary hypertension, unspecified; M79.7 Fibromyalgia; Z90.710 Acquired absence of both cervix and uterus; Z79.4 Long term (current) use of insulin; Z79.01 Long term (current) use of anticoagulants; M47.816 Spondylosis without myelopathy or radiculopathy, lumbar region
CPT/HCPCS: 72100; 99283; A9270

== ENCOUNTER 2022-08-13 16:34 | Inpatient (IN) | payer MEDICARE, SELFPAY ==
[2022-08-13] VITALS (22 sets, daily range): BP systolic 116–146; BP diastolic 56–75; PULSE 71–104; RESP 16–26; TEMP 36.6–36.7; O2SAT 89–99; BMI 36.8
--- NOTE | ~2022-08-13 | CT_ITS ---
EXAMINATION: CT chst ab johnnie casper wo DATE: 08/13/2022 17:40 INDICATION: Fall. Congestive heart failure. Altered mental status. Weakness. TECHNIQUE: Computed tomography (CT) of the chest, abdomen, pelvis, thoracic spine, and lumbar spine w as performed without intravenous contrast. Automated exposure control and iterative reconstruction te chnique were employed. The dose-length product was 1842.13 mGy-cm. COMPARISON: Chest CT 02/17/2018 FINDINGS: CHEST CT: The lungs demonstrate smooth septal thickening and scattered groundglass opacities. There are airspac e opacities in apicoposterior segment left upper lobe. A calcified left lung nodule is consistent wit h old granulomatous disease. There are small pleural effusions. Cardiomegaly is noted. There are corby nary artery calcifications. No pericardial effusion. The central pulmonary arteries are enlarged, con sistent with pulmonary arterial hypertension. There is ectasia of ascending aorta measuring 4.6 cm. T here is mild mediastinal lymphadenopathy, likely reactive. There is internal fixation of proximal rig ht humerus. There is advanced right glenohumeral joint osteoarthritis. There are old healed left rib fractures. ABDOMEN/PELVIS CT: The liver demonstrates surface nodularity, consistent with cirrhosis. The gallbladder is distended. C alcifications in the spleen are consistent with old granulomatous disease. There is mild splenomegaly . The pancreas and adrenal glands are normal. There are cysts in the kidneys measuring up to 3.6 cm o n the left. There is a 10 mm hemorrhagic cyst in left kidney. There are 5 stones in right kidney ad uring up to 3 mm. There are 3 stones in left kidney measuring up to 2 mm. The appendix is normal. The re are no dilated loops of bowel. There are no pathologically enlarged lymph nodes. There is no free intraperitoneal fluid. Body wall edema is noted. There is moderate right hip osteoarthritis and sever e left hip osteoarthritis. THORACIC SPINE CT: There is 13 degrees levoscoliosis of upper thoracic spine. Vertebral body heights are normal. There a re bridging endplate osteophytes from T1 to T10, consistent with diffuse idiopathic skeletal hyperost osis (DISH). There is mildly decreased disc height at most levels. There is multilevel mild to modera te facet joint hypertrophy. There is mild neural foraminal stenosis at multiple levels bilaterally. N o central canal stenosis. LUMBAR SPINE CT: There is 3 mm retrolisthesis of L2 on L3. There is severely decreased disc height at L1-L2 and L2-L3, moderately decreased disc height at L3-L4, and severely decreased disc height at L4-L5 with endplate remodeling. There is 3/5 height loss of L4 vertebral body centrally. The following disc levels are s pecifically discussed: L1-L2: The disc is bulging. There is severe bilateral facet joint osteoarthritis. There is mild bilat eral neural foraminal stenosis. There is mild central canal stenosis. L2-L3: The disc is bulging. There is severe right and moderate left facet joint osteoarthritis. There is mild right and moderate left neural foraminal stenosis. There is mild central canal stenosis. L3-L4: The disc is bulging. There is severe bilateral facet joint osteoarthritis. There is moderate r ight and mild left neural foraminal stenosis. There is mild central canal stenosis. L4-L5: The disc is bulging. There is mild right and severe left facet joint osteoarthritis. There is moderate bilateral neural foraminal stenosis. There is mild central canal stenosis. L5-S1: The disc is bulging. There is severe bilateral facet joint osteoarthritis. There is mild bilat eral neural foraminal stenosis. There is no central canal stenosis. IMPRESSION: 1. Mild pulmonary edema. 2. Mild pneumonia in left upper lobe. 3. Small pleural effusions. 4. Cardiomegaly. 5. Cirrhosis of the liver with portal venous hypertension.
--- NOTE | ~2022-08-13 | CT_ITS ---
EXAMINATION: CT cervical spine wo con DATE: 08/13/2022 17:30 INDICATION: Fall. TECHNIQUE: Computed tomography (CT) of the cervical spine was performed without intravenous contrast. Automated exposure control and iterative reconstruction technique were employed. The dose-length pro duct was 488.76 mGy-cm. COMPARISON: None FINDINGS: There is kyphosis of cervical spine. There is 4 degrees levocurvature of cervical spine. Ve rtebral body heights are normal. There is mildly decreased disc height at C2-C3, moderately decreased disc height at C4-C5, severely decreased disc height at C5-C6 and C6-C7. The following disc levels a re specifically discussed: C2-C3: There is moderate bilateral uncovertebral joint osteoarthritis. There is severe bilateral face t joint osteoarthritis. There is mild bilateral neural foraminal stenosis. There is mild central anders l stenosis. C3-C4: There is mild bilateral uncovertebral joint osteoarthritis. There is severe bilateral facet shan int osteoarthritis. There is moderate left neural foraminal stenosis. There is no central canal steno sis. C4-C5: There is mild bilateral uncovertebral joint osteoarthritis. There is severe right facet joint osteoarthritis. There is mild right neural foraminal stenosis. There is mild central canal stenosis. C5-C6: There is severe right and moderate left uncovertebral joint osteoarthritis. There is severe ri ght and mild left facet joint osteoarthritis. There is mild right neural foraminal stenosis. There is mild central canal stenosis. C6-C7: There is severe bilateral uncovertebral joint osteoarthritis. There is mild bilateral facet shan int osteoarthritis. There is mild bilateral neural foraminal stenosis. There is mild central canal st enosis. C7-T1: There is no uncovertebral joint osteoarthritis. There is moderate right and severe left facet joint osteoarthritis. There is mild left neural foraminal stenosis. There is no central canal stenosi s. IMPRESSION: 1. No fracture. 2. Severe cervical spondylosis. Reviewed, dictated and finalized at location A. HEAD DISTRIBUTION ENGINEER
--- NOTE | ~2022-08-13 | CT_ITS ---
EXAMINATION: CT brain wo con DATE: 08/13/2022 17:27 INDICATION: Fall. Headache. Blurry, double vision. TECHNIQUE: Computed tomography (CT) of the head was performed without intravenous contrast. The mA wa s adjusted according to patient size. Iterative reconstruction technique was employed. Exam dose: 60 5.33 mGy-cm total exam DLP. COMPARISON: 05/21/2021 CT brain FINDINGS: Prominent right vertebral and basilar and carotid siphon and supraclinoid internal carotid artery calcifications. There is nonspecific diminished attenuation of the cerebral white matter, likely due to chronic small vessel ischemic changes. Chronic lacunar infarct of the right thalamus. No intracranial mass lesion or hemorrhage or recent cerebrovascular accident is detected. No midline shift or mass effects. Normal ventricular size. No subdural or epidural hematoma. No orbital mass lesion. Right frontal sinus is not developed. The mastoid air cells and paranasal sinuses are otherwise unrem arkable. No fracture or bone destruction of the cranial vault. IMPRESSION: Cerebral atherosclerosis and chronic small vessel ischemic changes of cerebral white mat ter Chronic right thalamic lacunar infarcts Reviewed, dictated and finalized at [facility]. Reviewed, dictated and finalized at location A. RVISOR BLASTING IMPRESSION: Cerebral atherosclerosis and chronic small vessel ischemic changes of cerebral white matter Chronic right thalamic lacunar infarcts
--- NOTE | ~2022-08-13 | XR_ITS ---
EXAMINATION: XR wrist LT min 3V DATE: 08/13/2022 17:12 INDICATION: Left wrist pain. TECHNIQUE: 4 views of left wrist were obtained. COMPARISON: Left hand radiographs 02/28/2018 FINDINGS: Bone alignment is normal. No acute fracture. There is an old fracture of ulnar styloid with nonunion. Ulna abuts lunate, consistent with ulnolunate abutment syndrome. There is moderate osteoar thritis of first carpometacarpal joint. IMPRESSION: 1. Moderate osteoarthritis of first carpometacarpal joint. 2. Ulnolunate abutment syndrome. Reviewed, dictated and finalized at location [facility]. T TELEGRAPHER
--- NOTE | ~2022-08-13 | XR_ITS ---
EXAMINATION: XR chest 1V portable INDICATION: Shortness of breath and cough TECHNIQUE: Portable AP chest at 1704 hours COMPARISON: 03/11/2020 FINDINGS: Cardiomegaly is noted. There are patchy opacities of the lungs.. No pleural effusion or pne umothorax. Healed left-sided rib fractures are noted. IMPRESSION: 1. Cardiomegaly. 2. Patchy bilateral airspace opacities which may reflect pneumonia versus pulmonary edema. Reviewed, dictated and finalized at location [facility]. KE PROGRAM COORDINATOR IMPRESSION: 1. Cardiomegaly. 2. Patchy bilateral airspace opacities which may reflect pneumonia versus pulmo nary edema.
--- NOTE | 2022-08-13 16:55 | ECG_ITS ---
Measurements Intervals [place] Rate: 82 P: [place]: 0 QRS: -18 QRSD: 104 T: 136 QT: 388 QTc: 455 Interpretive Statements ATRIAL FIBRILLATION BORDERLINE R WAVE PROGRESSION, ANTERIOR LEADS BORDERLINE ST-T WAVE ABNORMALITY- HIGH LATERAL LEADS BASELINE ARTIFACT- I, II, AVR, V1-V2 ABNORMAL ECG COMPARED TO ECG 05/21/2021 10:22:20 ATRIAL FIBRILLATION NOW PRESENT Electronically Signed On 08-14-2022 6:38:25 [employer]ICK PRINT OPERATOR by Iván Mclaughlin D.O.
--- NOTE | 2022-08-13 16:58 | ED.AMS ---
HPI - Altered Mental Status General Chief Complaint: Altered Mental Status Stated Complaint: r leg weakness, aud/vis hallucinations, glf am Time Seen by Provider: 08/13/22 16:36 History of Present Illness HPI narrative: This is a 71-year-old female with past medical history of COPD, CHF (on 2 L O2 at baseline), diabetes, brought to the emergency department for hallucinations and right-sided leg weakness for the past 3 days. Patient states she was seen approximately 1 month ago for low back pain. 3 days ago, she started taking her daughter's tramadol for pain, around the same time she started noticing visual hallucinations, described as seeing wallpaper, and having conversations people who were not there. This morning proximately 9 hours prior to arrival,, she states she stood and walked down the hallway, tripping on items on the floor. At the time she also felt right leg weakness. She states she may have hit her head but denies loss of consciousness. She has no other complaints today. Related Data Home Medications Medication Instructions Recorded Confirmed apixaban 5 mg tablet (Eliquis) 5 mg PO BID 10/28/20 12/09/21 bisacodyl 5 mg tablet 5 mg PO DAILY PRN 10/28/20 12/09/21 furosemide 80 mg tablet 80 mg PO BID 10/28/20 12/09/21 glimepiride 1 mg tablet 1 mg PO DAILY 10/28/20 12/09/21 insulin human U-100 NPH-regulr See Rx Instructions .Route .COMPLEX 10/28/20 12/09/21 70-30 mix 100 unit/mL subcutaneous susp (Novolin 70/30 U-100 Insulin) vit C 250 mg-vit E 200 unit-zinc 1 tablet PO BID 10/28/20 12/09/21 12.5 mg-copper 1 [id number] tablet (ICaps AREDS2 (copper citrate)) metoprolol tartrate 100 mg tablet 100 mg PO BID 12/09/21 12/09/21 Allergies Allergy/AdvReac Type Severity Reaction Status Date / Time adhesive Allergy Unknown Unknown Verified 12/09/21 09:33 alcohol Allergy Unknown Unknown Verified 12/09/21 09:33 Beef Containing Products Allergy Unknown Unknown Verified 12/09/21 09:33 egg Allergy Unknown Unknown Verified 12/09/21 09:33 lisinopril Allergy Unknown Unknown Verified 12/09/21 09:33 milk Allergy Unknown Unknown Verified 12/09/21 09:33 monosodium glutamate Allergy Unknown Unknown Verified 12/09/21 09:33 nickel Allergy Unknown Unknown Verified 12/09/21 09:33 wheat Allergy Unknown Unknown Verified 12/09/21 09:33 corn Allergy Gastrointestinal Verified 12/09/21 09:33 Upset Fragrances Allergy Unknown Unknown Uncoded 12/09/21 09:33 Makeup Allergy Unknown unknown Uncoded 12/09/21 09:33 Review of Systems Review of Systems: CONSTITUTIONAL: Denies fever, chills, or sweats. EYES: Denies visual changes, redness, or discharge. ENT: Denies rhinorrhea, congestion, sore throat, or otalgia. CARDIOVASCULAR: Denies chest pain, palpitations, or edema. RESPIRATORY: Baseline dyspnea denies cough GASTROINTESTINAL: Denies abdominal pain, nausea, vomiting, or diarrhea. GENITOURINARY: Denies dysuria or hematuria. SKIN: Denies rash or itching. MUSCULOSKELETAL: Denies back pain, joint pain, or myalgia. NEUROLOGIC: Denies headache, numbness, dizziness, or weakness. PSYCHIATRIC: Visual and auditory hallucinations for 3 days denies anxiety or depression. [facility] Past Medical History Medical History Afib CHF with unknown LVEF Chronic obstructive pulmonary disease Fibroid tumor Hemorrhoids Mononucleosis Pulmonary hypertension Surgical History Surgical History H/O cardiac radiofrequency ablation H/O lumbar discectomy (~1982) History of hysterectomy (~1994) History of tonsillectomy (~1957) Family History Family History Father Family history of lung cancer, Onset Age: 68 Sibling Patient's sister is in good health Patient's brother is in good health Family history of arthritis Malignant neoplasm of prostate Mother Family histor
[2022-08-13 17:55] LABS: Basophils Absolute Auto 0.1 K/mm3 (0.0-0.1); Basophils Percent Auto 0.7 % (0.2-1.2); Eosinophils Absolute Auto 0.2 K/mm3 (0-0.3); Eosinophils Percent Auto 2.9 % (0-4.4); Hematocrit 31.8 % (37.0-47.0); Hemoglobin 9.6 g/dL (12.0-15.0); Immature Granulocyte Absolute 0.07 K/mm3 (0.00-0.031); Immature Granulocyte Percent A 0.8 % (0-0.5); Lymphocytes Absolute Auto 1.31 K/mm3 (0.9-3.2); Lymphocytes Percent Auto 15.7 % (18.3-44.2); Mean Corpuscular HGB Conc 30.2 g/dl (32-36); Mean Corpuscular Hemoglobin 27.4 pg (26-34); Mean Corpuscular Volume 90.9 fl (80-100); Mean Platelet Volume 10.4 fl (7.4-10.4); Monocytes Absolute Auto 0.6 K/mm3 (0.1-0.6); Monocytes Percent Auto 7.6 % (2.6-8.5); Neutrophils Percent Auto 72.3 % (45.5-73.1); Platelet Count Result 279 k/mm3 (150-375); Red Cell Distribution Width 16.8 % (11.5-14.5); White Blood Count 8.3 K/mm3 (4.5-10.0)
[2022-08-13 18:30] LABS: INR 1.4; Prothrombin Time 16.7 Seconds (11.1-14.7)
[2022-08-13 18:41] LABS: NT Pro B Type Natriuretic Pept 5360 pg/mL (5-100); Troponin I < 0.012 ng/mL (0.000-0.034)
[2022-08-13 19:01] LABS: Alanine Aminotransferase 17 U/L (6-35); Albumin Level 3.7 g/dL (3.5-5.1); Alkaline Phosphatase 78 U/L (38-126); Anion Gap 7 mmol/L (8-16); Aspartate Amino Transferase 22 U/L (14-36); Bilirubin,Total 0.6 mg/dL (0.2-1.3); Blood Urea Nitrogen 33 mg/dL (7-17); Calcium 8.5 mg/dL (8.4-10.2); Carbon Dioxide 33 mmol/L (22-30); Chloride 98 mmol/L (98-107); Creatine Kinase 36 U/L (30-135); Estimated CRCL calculation 35 ml/min; Estimated Glomerular Filt Rate 30; Glucose 59 mg/dL (65-110); Potassium 3.7 mmol/L (3.4-5.0); Sodium 138 mmol/L (137-145)
[2022-08-13 19:17] LABS: Ethanol < 10 mg/dL (<10)
[2022-08-13] MEDS: DEXTROSE 50% 25 GM/50 ML SYRINGE IV PUSH (19:23)
--- NOTE | 2022-08-13 19:57 | PM.IMHP ---
H&P: HPI History of Present Illness Date/Time: 08/13/22 19:57 Chief Complaint: Hallucinations, fall Narrative: 71-year-old female with past medical history of chronic hypoxic respiratory failure, moderate to severe obstructive lung disease, pulmonary hypertension, grade 3 diastolic dysfunction, obstructive sleep apnea, diabetes and paroxysmal atrial fibrillation who presented to the ER after having a fall. The patient had been evaluated in the ER in July due to back pain after fall and a bed diagnosed with an L4 compression fracture. she states that since she fell she has gotten progressively weaker and has started to have to ambulate with a walker. since she has started walking with a walker she is now having severe right shoulder pain. So she started taking her daughter's tramadol. She states that after started taking her daughter's tramadol she started having hallucinations of people being in bed with her, objects moving on the wall, the hose to her oxygen the being snakes, and once she arrived to the hospital she thought she was seeing images on the TV but the TV in the room was off. She was able to rationalize these hallucinations away but was concerned due to their presence. She she states that she has an appointment scheduled in [place] to see a pain management doctor in September. She was sitting about switching to see a pain management doctor here in [place]. She states that she cannot take Tylenol due to an allergy where it is not processed in her liver. She also admits to having increased shortness of breath for the last couple of weeks. She reports that she does not sleep well in sits up most of the night. She reports that if she sleeps in the school transportation director through the afternoon she often will not take her Lasix as she does not want to be peeing all the time. subsequently she has developed increased lower extremity swelling. She has also noticed herself wheezing more recently. She has had to use her rescue inhaler more frequently instead of using it once every couple of weeks she has been using it 3 or 4 times a week. The inhaler gives her short-term relief of her symptoms. She does not have a nebulizer machine at home. Her home oxygen is chronically at 3 L nasal cannula. She does have obstructive sleep apnea but does not tolerate CPAP. She denies having any fevers or chills. She has had decreased appetite. She reports that she has had increased cough and intermittent increased shortness of breath or recent she got her flu shot on the 9th of October. She denies any chest pain or palpitations. She has continued to take her home NPH insulin and Jardiance despite having decreased appetite. She has not been checking her blood sugars. In the ER she had not been able to eat anything all day and was hypoglycemic when her labs were drawn. She reports that she eats a vegan diet due to her multiple food allergies. She received IV dextrose in the ER due to hypoglycemia. Her glucoses improved. the patient does have a history of atrial fibrillation but quit taking her anticoagulation after she had an atrial ablation. In the ER her EKG did demonstrate atrial fibrillation but her rate was controlled. The patient's Eliquis to a not listed as being filled on her external med history but the patient did confirm Eliquis dosing on her med rec. It is unclear how consistent she has been in taking her Eliquis. Is also unclear patient has been consistent with her cardiac medications as she does not take her Lasix as directed. Review of Systems Review of Systems: 12 systems were reviewed with pertinent positives and negatives per HPI. Except as documented in the HPI, all other systems were reviewed and are negative. [facility] Past Medical History Medical History (Updated 08/14/22 @ 05:55 by Clare Sosa, ) Chronic anemia Chronic kidney disease, stage 3 Chronic obstructive pulmonary disease PFTs 2013 demonstrated moderate restrictive lung di
[2022-08-13 20:14] LABS: Glucose Point of Care 134 mg/dl (65-105)
[2022-08-13 20:41] LABS: Influenza A QL RT-PCR Negative (Negative); Influenza B QL RT-PCR Negative (Negative); SARS-CoV-2 RNA PCR Negative
[2022-08-13] MEDS: FUROSEMIDE INJ 40 MG/4 ML VIAL IV PUSH (20:57)
--- NOTE | 2022-08-13 22:30 | ADMGEN ---
This patient, Ashley Luke, was admitted to Medical Room 246-01. Patient/family oriented to hospital policies and general routines including ID bracelet, bed and alarms, visiting hours, pain management, procedures, bathroom and other care routines, personal items, smoking policy, room service/diet, and visiting hours. Information on how to activate the Rapid Response Team has been discussed. Patient/Family are encouraged to report perceived risks to care and to ask questions if they do not understand what they are told or what they should do.
[2022-08-13 23:17] LABS: Troponin I < 0.012 ng/mL (0.000-0.034)
[2022-08-14] VITALS (21 sets, daily range): BP systolic 113–144; BP diastolic 58–77; PULSE 65–129; RESP 12–22; TEMP 36.6–36.7; O2SAT 90–98
--- NOTE | 2022-08-14 | ECHO_ITS ---
Patient Info Name: Ashley Luke Age: 71 years : 1950 Gender: Female Ht: 68 in Wt: 242 lbs BSA: 2.34 m2 HR: 118 bpm BP: 134 / 62 mmHg Heart Rhythm: Sinus Rhythm Technical Quality: Fair Exam Date: 08/14/2022 11:30 AM Exam Location: [facility] Pulmonary Exam Room: 246 Patient Status: Inpatient Admit Date: 08/13/2022 Staff Ordering Physician: Clare Sosa DO Asphalt Paving Machine Operator: Pretty Reyes RDCS Attending Provider: Clare Sosa DO Referring Physician: Ian CASTILLO; Exam Type: CA echo doppler color flow Study Info Indications - chf Complete two-dimensional, color flow and Doppler transthoracic echocardiogram is performed. Summary 1. Complete two-dimensional, color flow and Doppler transthoracic echocardiogram is performed. 2. Normal left ventricular size and hyperdynamic systolic function. 3. Small amount of aortic and mitral valve regurgitation. 4. Mild tricuspid regurgitation velocities suggest significant pulmonary hypertension. Left Ventricle Left ventricular chamber dimension is normal. Left ventricular systolic function is normal, estimated at 60-65%. The left ventricular diastolic function is indeterminate. Right Ventricle Right ventricular chamber dimension is normal. Left Atria Left atrial chamber dimension is mildly enlarged. Right Atria Right atrial chamber dimension is normal. Aortic Valve The aortic valve is trileaflet. There is trace aortic valve regurgitation. Pulmonic Valve The pulmonic valve is not well visualized. Mitral Valve The mitral valve has normal leaflets. There is mild mitral valve regurgitation. Tricuspid Valve The tricuspid valve leaflets are normal. There is mild tricuspid valve regurgitation. Severe pulmonary hypertension, estimated pulmonary arterial systolic pressure is 74 mmHg. Pericardium/Pleural The pericardium appears normal. Aorta The aortic root size at the sinus of Valsalva is normal. Left Ventricular Outflow Tract Name Value Normal LVOT 2D LVOT Diameter 2.1 cm LVOT Doppler LVOT Peak Gradient 4 mmHg LVOT Mean Gradient 3 mmHg LVOT VTI 19 cm LVOT VTI/AV VTI Ratio 0.8 LVOT Stroke Volume 70 ml LVOT CO 16.3 l/min LVOT CI 7.0 l/min/m2 Pulmonic Valve Name Value Normal PV Doppler PV Peak Gradient 2 mmHg Mitral Valve Name Value Normal MV Doppler MV Decel Hutchinson 688 cm
[2022-08-14 00:16] LABS: Glucose Point of Care 63 mg/dl (65-105)
--- NOTE | 2022-08-14 00:20 | PC.NURSE ---
Pt blood sugar was 63. Pt agreeable to a snack. Pt has very restrictive diet due to being a vegetarian and allergies but was in agreement to eat a fruit cup. Pt asymptomatic of low sugar.
[2022-08-14 03:08] LABS: Appearance Urine Clear (Clear); Bilirubin Urine Negative (Negative); Blood Urine Negative (Negative); Color Urine Yellow (Yellow); Glucose Urine UA Negative (Negative); Ketones Urine Negative (Negative); Leukocyte Esterase Ur Negative LEU/UL (Negative); Nitrate Urine Negative (Negative); Protein Urine Negative (Negative); Urobilinogen Urine 0.2 mg/dL (<2.0); pH Urine 5.5 (5.0-9.0)
[2022-08-14 03:11] LABS: Add Urine Microscopic? NO
[2022-08-14 03:30] LABS: Amphetamine Screen Urine Negative (Negative); Barbiturate Screen Urine Negative (Negative); Benzodiazepines Screen Urine Negative (Negative); Cannabinoid Screen Urine Negative (Negative); Cocaine Screen Urine Negative (Negative); Methadone Screen Urine Negative (Negative); Opiate Screen Urine Negative (Negative); Phencyclidine Screen Urine Negative (Negative)
[2022-08-14 05:57] LABS: Basophils Absolute Auto 0.1 K/mm3 (0.0-0.1); Eosinophils Absolute Auto 0.2 K/mm3 (0-0.3); Eosinophils Percent Auto 3.4 % (0-4.4); Hemoglobin 10.1 g/dL (12.0-15.0); Immature Granulocyte Absolute 0.04 K/mm3 (0.00-0.031); Immature Granulocyte Percent A 0.7 % (0-0.5); Lymphocytes Absolute Auto 0.94 K/mm3 (0.9-3.2); Lymphocytes Percent Auto 15.8 % (18.3-44.2); Mean Corpuscular HGB Conc 28.9 g/dl (32-36); Mean Corpuscular Hemoglobin 27.4 pg (26-34); Mean Corpuscular Volume 95.1 fl (80-100); Mean Platelet Volume 10.1 fl (7.4-10.4); Monocytes Absolute Auto 0.4 K/mm3 (0.1-0.6); Monocytes Percent Auto 6.2 % (2.6-8.5); Neutrophils Absolute Auto 4.3 K/mm3 (1.3-6.7); Neutrophils Percent Auto 72.9 % (45.5-73.1); Platelet Count Result 233 k/mm3 (150-375); Red Blood Count 3.68 M/mm3 (4.2-5.4); Red Cell Distribution Width 16.8 % (11.5-14.5); White Blood Count 5.9 K/mm3 (4.5-10.0)
[2022-08-14 06:04] LABS: Alanine Aminotransferase 14 U/L (6-35); Albumin Level 3.5 g/dL (3.5-5.1); Alkaline Phosphatase 67 U/L (38-126); Anion Gap 11 mmol/L (8-16); Aspartate Amino Transferase 25 U/L (14-36); Bilirubin,Total 0.7 mg/dL (0.2-1.3); Blood Urea Nitrogen 27 mg/dL (7-17); Carbon Dioxide 32 mmol/L (22-30); Chloride 96 mmol/L (98-107); Estimated CRCL calculation 49 ml/min; Estimated Glomerular Filt Rate 44; Glucose 78 mg/dL (65-110); Potassium 3.6 mmol/L (3.4-5.0); Sodium 139 mmol/L (137-145)
[2022-08-14 06:43] LABS: Anisocytosis 1+ (NORMAL); Ovalocytes 1+ (NORMAL); Platelet Estimate Adequate (Adequate)
[2022-08-14 07:05] LABS: Schistocytes None Seen (NORMAL)
[2022-08-14] MEDS: IPRATROPIUM BR 0.02% INH SOLN 0.5 MG/2.5 ML VIAL INHALATION ×3 (08:32→20:26)
--- NOTE | 2022-08-14 08:42 | PM.IMPN ---
Progress Note: A&P Assessment and Plan (1) CHF exacerbation: Qualifiers: Heart failure type: diastolic Qualified Code(s): I50.33 - Acute on chronic diastolic (congestive) heart failure Code(s): I50.9 - Heart failure, unspecified Status: Acute Assessment and Plan: Diastolic heart failure, check echo, continue IV diuresis (2) Paroxysmal atrial fibrillation: Code(s): I48.0 - Paroxysmal atrial fibrillation Status: Acute Assessment and Plan: Continue beta-arnel and Eliquis, rate controlled (3) Hallucination, visual: Code(s): R44.1 - Visual hallucinations Status: Acute Assessment and Plan: Likely secondary to tramadol, will hold this medication and monitor (4) Acute kidney injury superimposed on chronic kidney disease: Code(s): N17.9 - Acute kidney failure, unspecified; N18.9 - Chronic kidney disease, unspecified Status: Acute Assessment and Plan: Patient appears to be hypervolemic, will monitor response to diuresis (5) Type 2 diabetes mellitus with hypoglycemia without coma: Code(s): E11.649 - Type 2 diabetes mellitus with hypoglycemia without coma Status: Acute Assessment and Plan: hold diabetic agents, patient is on a vegan diet (6) Frequent falls: Code(s): R29.6 - Repeated falls Status: Acute Assessment and Plan: PT/OT consultation pending (7) Chronic respiratory failure with hypoxia, on home O2 therapy: Code(s): J96.11 - Chronic respiratory failure with hypoxia; Z99.81 - Dependence on supplemental oxygen Status: Acute Assessment and Plan: Continue home O2, nebulizer treatments due to increased wheezing, Xopenex (8) Acute on chronic anemia: Code(s): D64.9 - Anemia, unspecified Status: Acute Assessment and Plan: Fecal occult blood test pending, suspected his dietary however (9) Chronic obstructive pulmonary disease: Qualifiers: COPD type: unspecified COPD Qualified Code(s): J44.9 - Chronic obstructive pulmonary disease, unspecified Code(s): J44.9 - Chronic obstructive pulmonary disease, unspecified Status: Acute Assessment and Plan: Abnormal chest x-ray noted, suspect this is secondary to edema as opposed to infection, discontinue antibiotics and monitor (10) Pulmonary hypertension: Code(s): I27.20 - Pulmonary hypertension, unspecified Status: Acute Assessment and Plan: Noted on echo from 2018, continue oxygen supplementation (11) Cirrhosis: Code(s): K74.60 - Unspecified cirrhosis of liver Status: Acute Assessment and Plan: With associated portal venous hypertension noted Plan DVT prophylaxis with SCDs GI prophylaxis not indicated Code status full code Subjective Date/time seen: 08/14/22 08:42 Interval history: No overnight events noted. No chest pain or shortness of breath. No nausea, vomiting or diarrhea. No fevers or chills. Patient states she did have some hallucinations with tramadol, these appear resolved. She also noted that recently she has had decreased urine output despite taking her diuretics. She is on 2 L of oxygen at baseline at home. Review of Systems Review of Systems: 12 point review of systems was assessed and was negative except as noted in the HPI Exam Narrative: General: No acute distress, alert and oriented per baseline HEENT: Atraumatic, normocephalic, mucous membranes moist CV: Regular rate and rhythm, S1, S2 Lungs: Clear to auscultation bilaterally, no rales or crackles noted, no wheezes, good air entry Abdomen: Soft, nontender, nondistended Extremities: Normal to inspection Skin: No rashes noted, no lesions or wounds seen Psych: Euthymic, normal affect Objective Data Vital Signs Vital Signs: Vital Signs - 24 hr 08/13/22 16:51 08/13/22 19:25 08/13/22 19:28 Temperature 98.1 F Pulse Rate 104 H 71 88 Respiratory
[2022-08-14 08:45] LABS: Glucose Point of Care 105 mg/dl (65-105)
[2022-08-14] MEDS: METOPROLOL TARTRATE 50 MG TAB 100 MG PO ×2 (09:05→20:26)
[2022-08-14] MEDS: LOSARTAN POTASSIUM 50 MG TABLET PO (09:06)
[2022-08-14] MEDS: FUROSEMIDE INJ 40 MG/4 ML VIAL IV PUSH ×2 (09:06→16:48)
[2022-08-14] MEDS: OPTI-GEN TAB 1 TABLET PO ×2 (09:06→16:48)
[2022-08-14] MEDS: methocarbamoL 500 MG TABLET PO ×2 (09:06→20:26)
[2022-08-14] MEDS: GABAPENTIN 300 MG CAPSULE PO ×3 (09:06→16:48)
[2022-08-14] MEDS: APIXABAN 5 MG TABLET PO ×2 (09:06→16:48)
[2022-08-14] MEDS: DICLOFENAC SODIUM 1% 100 GM GEL (*BKC) 1 APPLIC TOPICAL ×4 (09:06→20:26)
[2022-08-14] MEDS: DULoxetine HCL 60 MG CAPSULE.DR PO ×2 (09:06→16:48)
[2022-08-14] MEDS: NIFEdipine 30 MG TAB.ER.24 90 MG PO (09:06)
[2022-08-14 12:13] LABS: Glucose Point of Care 124 mg/dl (65-105)
[2022-08-14] MEDS: DOXAZOSIN MESYLATE 2 MG TABLET BY MOUTH (20:26)
[2022-08-15] VITALS (21 sets, daily range): BP systolic 114–129; BP diastolic 55–74; PULSE 68–104; RESP 16–20; TEMP 36.3–36.6; O2SAT 77–98
[2022-08-15] MEDS: IPRATROPIUM BR 0.02% INH SOLN 0.5 MG/2.5 ML VIAL INHALATION ×3 (01:52→15:06)
[2022-08-15 05:34] LABS: Basophils Percent Auto 0.6 % (0.2-1.2); Eosinophils Absolute Auto 0.1 K/mm3 (0-0.3); Eosinophils Percent Auto 2.2 % (0-4.4); Hematocrit 28.4 % (37.0-47.0); Hemoglobin 8.7 g/dL (12.0-15.0); Immature Granulocyte Absolute 0.03 K/mm3 (0.00-0.031); Immature Granulocyte Percent A 0.6 % (0-0.5); Lymphocytes Absolute Auto 0.92 K/mm3 (0.9-3.2); Lymphocytes Percent Auto 18.7 % (18.3-44.2); Mean Corpuscular HGB Conc 30.6 g/dl (32-36); Mean Corpuscular Hemoglobin 27.3 pg (26-34); Mean Platelet Volume 9.6 fl (7.4-10.4); Monocytes Absolute Auto 0.4 K/mm3 (0.1-0.6); Monocytes Percent Auto 8.5 % (2.6-8.5); Neutrophils Absolute Auto 3.4 K/mm3 (1.3-6.7); Neutrophils Percent Auto 69.4 % (45.5-73.1); Platelet Count Result 243 k/mm3 (150-375); Red Blood Count 3.19 M/mm3 (4.2-5.4); Red Cell Distribution Width 16.3 % (11.5-14.5); White Blood Count 4.9 K/mm3 (4.5-10.0)
[2022-08-15 05:47] LABS: Alanine Aminotransferase 12 U/L (6-35); Albumin Level 3.1 g/dL (3.5-5.1); Alkaline Phosphatase 61 U/L (38-126); Anion Gap 8 mmol/L (8-16); Aspartate Amino Transferase 17 U/L (14-36); Bilirubin,Total 0.7 mg/dL (0.2-1.3); Blood Urea Nitrogen 18 mg/dL (7-17); Calcium 7.9 mg/dL (8.4-10.2); Carbon Dioxide 35 mmol/L (22-30); Chloride 96 mmol/L (98-107); Estimated CRCL calculation 64 ml/min; Estimated Glomerular Filt Rate > 60; Glucose 162 mg/dL (65-110); Potassium 2.9 mmol/L (3.4-5.0); Sodium 139 mmol/L (137-145)
[2022-08-15] MEDS: NIFEdipine 30 MG TAB.ER.24 90 MG PO (08:01)
[2022-08-15] MEDS: LOSARTAN POTASSIUM 50 MG TABLET PO (08:02)
[2022-08-15] MEDS: GABAPENTIN 300 MG CAPSULE PO ×3 (08:02→17:14)
[2022-08-15] MEDS: FUROSEMIDE INJ 40 MG/4 ML VIAL IV PUSH (08:02)
[2022-08-15] MEDS: METOPROLOL TARTRATE 50 MG TAB 100 MG PO ×2 (08:02→20:05)
[2022-08-15] MEDS: DICLOFENAC SODIUM 1% 100 GM GEL (*BKC) 1 APPLIC TOPICAL ×4 (08:02→20:06)
[2022-08-15] MEDS: APIXABAN 5 MG TABLET PO ×2 (08:02→17:14)
[2022-08-15] MEDS: DULoxetine HCL 60 MG CAPSULE.DR PO ×2 (08:02→17:14)
[2022-08-15] MEDS: OPTI-GEN TAB 1 TABLET PO ×2 (08:02→17:14)
[2022-08-15] MEDS: methocarbamoL 500 MG TABLET PO ×2 (08:02→20:05)
--- NOTE | 2022-08-15 08:14 | PM.IMPN ---
Progress Note: A&P Assessment and Plan (1) CHF exacerbation: Qualifiers: Heart failure type: diastolic Qualified Code(s): I50.33 - Acute on chronic diastolic (congestive) heart failure Code(s): I50.9 - Heart failure, unspecified Status: Acute Assessment and Plan: Echo showed an EF of 60-65% with indeterminate diastolic function, no significant valvular abnormalities, severe pulmonary hypertension noted Patient appears euvolemic today, will discontinue IV diuresis and restart patient's home Lasix 80 mg p.o. twice daily this evening (2) Paroxysmal atrial fibrillation: Code(s): I48.0 - Paroxysmal atrial fibrillation Status: Acute Assessment and Plan: Continue beta-arnel and Eliquis, rate controlled (3) Hallucination, visual: Code(s): R44.1 - Visual hallucinations Status: Acute Assessment and Plan: Resolved (4) Acute kidney injury superimposed on chronic kidney disease: Code(s): N17.9 - Acute kidney failure, unspecified; N18.9 - Chronic kidney disease, unspecified Status: Acute Assessment and Plan: Resolved (5) Type 2 diabetes mellitus with hypoglycemia without coma: Code(s): E11.649 - Type 2 diabetes mellitus with hypoglycemia without coma Status: Acute Assessment and Plan: hold diabetic agents, patient is on a vegan diet (6) Frequent falls: Code(s): R29.6 - Repeated falls Status: Acute Assessment and Plan: PT/OT are recommending SNF (7) Chronic respiratory failure with hypoxia, on home O2 therapy: Code(s): J96.11 - Chronic respiratory failure with hypoxia; Z99.81 - Dependence on supplemental oxygen Status: Acute Assessment and Plan: On home O2 of 2 L, appears to be at baseline (8) Acute on chronic anemia: Code(s): D64.9 - Anemia, unspecified Status: Acute Assessment and Plan: Suspect this is dietary, however, hemoglobin did drop down to 8.7 from 10.1 this morning, fecal occult still pending, will recheck BMP and CBC this afternoon to monitor response to potassium repletion and recheck hemoglobin (9) Chronic obstructive pulmonary disease: Qualifiers: COPD type: unspecified COPD Qualified Code(s): J44.9 - Chronic obstructive pulmonary disease, unspecified Code(s): J44.9 - Chronic obstructive pulmonary disease, unspecified Status: Acute Assessment and Plan: Appears to be back to baseline, stable off antibiotics, and no infection suspected (10) Pulmonary hypertension: Code(s): I27.20 - Pulmonary hypertension, unspecified Status: Acute Assessment and Plan: Noted on echo from 2017, continue oxygen supplementation Severe pulmonary hypertension seen on echo from August 14, 2022 (11) Cirrhosis: Code(s): K74.60 - Unspecified cirrhosis of liver Status: Acute Assessment and Plan: With associated portal venous hypertension noted Appears stable, no obvious ascites noted (12) Hypokalemia: Code(s): E87.6 - Hypokalemia Status: Acute Assessment and Plan: Secondary to IV diuresis, will replace and recheck Plan Medically stable for discharge today, will discuss with care coordination plan to send patient to SNF DVT prophylaxis with SCDs GI prophylaxis not indicated Code status full code Subjective Date/time seen: 08/15/22 08:15 Interval history: No overnight events noted. No chest pain or shortness of breath. No nausea, vomiting or diarrhea. No fevers or chills. Denies any hallucinations, did have a dream last night that for a few seconds felt a little real. Other than that, no further episodes of confusion. Care coordination notes regarding unsafe home situation reviewed. Patient still would like to go home today, will discuss this with care coordination regarding safe discharge for patient. Review of Systems Review of Systems: 12 point review of systems w
[2022-08-15] MEDS: POTASSIUM CHLORIDE 20 MEQ TABLET 40 MEQ PO (12:08)
--- NOTE | 2022-08-15 12:17 | PCRCNOTE ---
HOME OXYGEN EVALUATION COMPLETE; PT. REQUIRES 2LPM OXYGEN CONTINUOUSLY SHE IS CURRENTLY ON AT HOME. NO CHANGE NEEDED. PT'S. R.N. AND DR. PINA BOTH NOTIFIED.
[2022-08-15] MEDS: POTASSIUM CHLORIDE INJ 40 MEQ in SODIUM CHLORIDE 0.9% IV 500 ML 130 MEQ IVPB (12:21)
[2022-08-15 15:06] LABS: Basophils Percent Auto 0.5 % (0.2-1.2); Eosinophils Absolute Auto 0.1 K/mm3 (0-0.3); Hematocrit 30.2 % (37.0-47.0); Hemoglobin 9.2 g/dL (12.0-15.0); Immature Granulocyte Absolute 0.03 K/mm3 (0.00-0.031); Immature Granulocyte Percent A 0.5 % (0-0.5); Lymphocytes Absolute Auto 0.67 K/mm3 (0.9-3.2); Lymphocytes Percent Auto 11.3 % (18.3-44.2); Mean Corpuscular HGB Conc 30.5 g/dl (32-36); Mean Corpuscular Hemoglobin 27.2 pg (26-34); Mean Corpuscular Volume 89.3 fl (80-100); Mean Platelet Volume 9.6 fl (7.4-10.4); Monocytes Absolute Auto 0.5 K/mm3 (0.1-0.6); Monocytes Percent Auto 7.6 % (2.6-8.5); Neutrophils Absolute Auto 4.6 K/mm3 (1.3-6.7); Neutrophils Percent Auto 78.1 % (45.5-73.1); Platelet Count Result 256 k/mm3 (150-375); Red Blood Count 3.38 M/mm3 (4.2-5.4); Red Cell Distribution Width 16.3 % (11.5-14.5); White Blood Count 5.9 K/mm3 (4.5-10.0)
[2022-08-15 15:19] LABS: Anion Gap 10 mmol/L (8-16); Blood Urea Nitrogen 18 mg/dL (7-17); Calcium 8.1 mg/dL (8.4-10.2); Carbon Dioxide 36 mmol/L (22-30); Chloride 93 mmol/L (98-107); Estimated CRCL calculation 64 ml/min; Estimated Glomerular Filt Rate > 60; Glucose 245 mg/dL (65-110); Potassium 4.1 mmol/L (3.4-5.0); Sodium 139 mmol/L (137-145)
[2022-08-15] MEDS: FUROSEMIDE 80 MG TABLET PO (17:15)
[2022-08-15] MEDS: DOXAZOSIN MESYLATE 2 MG TABLET BY MOUTH (20:05)
--- NOTE | 2022-08-15 22:23 | PCRCNOTE ---
Window of time for administration has passed. See next scheduled administration.
[2022-08-16] VITALS (11 sets, daily range): BP systolic 108–132; BP diastolic 58–71; PULSE 88–102; RESP 18–20; TEMP 36.7; O2SAT 93–99
[2022-08-16] MEDS: IPRATROPIUM BR 0.02% INH SOLN 0.5 MG/2.5 ML VIAL INHALATION ×3 (02:39→13:53)
[2022-08-16 06:18] LABS: Basophils Percent Auto 0.5 % (0.2-1.2); Eosinophils Absolute Auto 0.1 K/mm3 (0-0.3); Eosinophils Percent Auto 1.6 % (0-4.4); Hemoglobin 8.8 g/dL (12.0-15.0); Immature Granulocyte Absolute 0.03 K/mm3 (0.00-0.031); Immature Granulocyte Percent A 0.5 % (0-0.5); Lymphocytes Absolute Auto 0.83 K/mm3 (0.9-3.2); Lymphocytes Percent Auto 14.8 % (18.3-44.2); Mean Corpuscular HGB Conc 30.3 g/dl (32-36); Mean Corpuscular Hemoglobin 27.1 pg (26-34); Mean Corpuscular Volume 89.2 fl (80-100); Mean Platelet Volume 9.4 fl (7.4-10.4); Monocytes Absolute Auto 0.5 K/mm3 (0.1-0.6); Monocytes Percent Auto 8.6 % (2.6-8.5); Neutrophils Absolute Auto 4.2 K/mm3 (1.3-6.7); Platelet Count Result 223 k/mm3 (150-375); Red Blood Count 3.25 M/mm3 (4.2-5.4); Red Cell Distribution Width 16.4 % (11.5-14.5); White Blood Count 5.6 K/mm3 (4.5-10.0)
[2022-08-16 06:42] LABS: Alanine Aminotransferase 13 U/L (6-35); Albumin Level 3.2 g/dL (3.5-5.1); Alkaline Phosphatase 64 U/L (38-126); Anion Gap 4 mmol/L (8-16); Aspartate Amino Transferase 17 U/L (14-36); Bilirubin,Total 0.7 mg/dL (0.2-1.3); Blood Urea Nitrogen 16 mg/dL (7-17); Calcium 7.9 mg/dL (8.4-10.2); Carbon Dioxide 36 mmol/L (22-30); Chloride 96 mmol/L (98-107); Estimated CRCL calculation 64 ml/min; Estimated Glomerular Filt Rate > 60; Glucose 175 mg/dL (65-110); Potassium 3.9 mmol/L (3.4-5.0); Sodium 136 mmol/L (137-145)
[2022-08-16 08:57] LABS: Glucose Point of Care 175 mg/dl (65-105)
[2022-08-16] MEDS: DICLOFENAC SODIUM 1% 100 GM GEL (*BKC) 1 APPLIC TOPICAL ×2 (09:03→12:31)
[2022-08-16] MEDS: NIFEdipine 30 MG TAB.ER.24 90 MG PO (09:04)
[2022-08-16] MEDS: methocarbamoL 500 MG TABLET PO (09:04)
[2022-08-16] MEDS: METOPROLOL TARTRATE 50 MG TAB 100 MG PO (09:04)
[2022-08-16] MEDS: OPTI-GEN TAB 1 TABLET PO (09:10)
[2022-08-16] MEDS: LOSARTAN POTASSIUM 50 MG TABLET PO (09:10)
[2022-08-16] MEDS: DULoxetine HCL 60 MG CAPSULE.DR PO (09:10)
[2022-08-16] MEDS: GABAPENTIN 300 MG CAPSULE PO ×2 (09:10→12:30)
[2022-08-16] MEDS: FUROSEMIDE 80 MG TABLET PO (09:10)
[2022-08-16] MEDS: APIXABAN 5 MG TABLET PO (09:10)
--- NOTE | 2022-08-16 10:36 | PM.DS ---
DS: Admitting Diagnosis Discharge Date August 16 2022 Admitting Diagnosis Fall DS: Discharge Diagnosis Discharge Diagnosis (1) CHF exacerbation: Qualifiers: Heart failure type: diastolic Qualified Code(s): I50.33 - Acute on chronic diastolic (congestive) heart failure Code(s): I50.9 - Heart failure, unspecified Status: Acute Assessment and Plan: Echo showed an EF of 60-65% with indeterminate diastolic function, no significant valvular abnormalities, severe pulmonary hypertension noted Patient appears euvolemic today, will discontinue IV diuresis and restart patient's home Lasix 80 mg p.o. twice daily this evening (2) Paroxysmal atrial fibrillation: Code(s): I48.0 - Paroxysmal atrial fibrillation Status: Acute Assessment and Plan: Continue beta-arnel and Eliquis, rate controlled (3) Hallucination, visual: Code(s): R44.1 - Visual hallucinations Status: Acute Assessment and Plan: Resolved (4) Acute kidney injury superimposed on chronic kidney disease: Code(s): N17.9 - Acute kidney failure, unspecified; N18.9 - Chronic kidney disease, unspecified Status: Acute Assessment and Plan: Resolved (5) Type 2 diabetes mellitus with hypoglycemia without coma: Code(s): E11.649 - Type 2 diabetes mellitus with hypoglycemia without coma Status: Acute Assessment and Plan: hold diabetic agents, patient is on a vegan diet (6) Frequent falls: Code(s): R29.6 - Repeated falls Status: Acute Assessment and Plan: PT/OT are recommending SNF (7) Chronic respiratory failure with hypoxia, on home O2 therapy: Code(s): J96.11 - Chronic respiratory failure with hypoxia; Z99.81 - Dependence on supplemental oxygen Status: Acute Assessment and Plan: On home O2 of 2 L, appears to be at baseline (8) Acute on chronic anemia: Code(s): D64.9 - Anemia, unspecified Status: Acute Assessment and Plan: Suspect this is dietary, however, hemoglobin did drop down to 8.7 from 10.1 this morning, fecal occult still pending, will recheck BMP and CBC this afternoon to monitor response to potassium repletion and recheck hemoglobin (9) Chronic obstructive pulmonary disease: Qualifiers: COPD type: unspecified COPD Qualified Code(s): J44.9 - Chronic obstructive pulmonary disease, unspecified Code(s): J44.9 - Chronic obstructive pulmonary disease, unspecified Status: Acute Assessment and Plan: Appears to be back to baseline, stable off antibiotics, and no infection suspected (10) Pulmonary hypertension: Code(s): I27.20 - Pulmonary hypertension, unspecified Status: Acute Assessment and Plan: Noted on echo from 2018, continue oxygen supplementation Severe pulmonary hypertension seen on echo from August 14, 2022 (11) Cirrhosis: Code(s): K74.60 - Unspecified cirrhosis of liver Status: Acute Assessment and Plan: With associated portal venous hypertension noted Appears stable, no obvious ascites noted (12) Hypokalemia: Code(s): E87.6 - Hypokalemia Status: Acute Assessment and Plan: Secondary to IV diuresis, will replace and recheck Plan Medically stable for discharge today, will discuss with care coordination plan to send patient to SNF DVT prophylaxis with SCDs GI prophylaxis not indicated Code status full code DS: Summary Hospital Course Hospital Course: 71-year-old female with past medical history of chronic hypoxic respiratory failure, moderate to severe obstructive lung disease, pulmonary hypertension, grade 3 diastolic dysfunction, obstructive sleep apnea, diabetes and paroxysmal atrial fibrillation who presented to the ER after having a fall.? The patient had been evaluated in the ER in July due to back pain after fall and a bed diagnosed with an L4 compression fracture.? she states that since she f
[2022-08-16 12:21] LABS: Glucose Point of Care 180 mg/dl (65-105)
== END 2022-08-16 16:30 | disposition home health service (06) | DRG 292 ==
LOC: ANHED 19:58 → ANH2MED 21:01
PROVIDERS: Admitting Provider Internal Medicine; Emergency Provider Preventive Medicine Aerospace Medicine; PCP Internal Medicine Gastroenterology; Visit Provider Student in an Organized Health Care Education/Training Program
DX: I50.33 Acute on chronic diastolic (congestive) heart failure (principal); J96.11 Chronic respiratory failure with hypoxia; S32.040A Wedge compression fracture of fourth lumbar vertebra, initial encounter for closed fracture; N17.9 Acute kidney failure, unspecified; I48.0 Paroxysmal atrial fibrillation; R44.1 Visual hallucinations; E11.649 Type 2 diabetes mellitus with hypoglycemia without coma; Z99.81 Dependence on supplemental oxygen; I27.20 Pulmonary hypertension, unspecified; K74.60 Unspecified cirrhosis of liver; R29.6 Repeated falls; E87.6 Hypokalemia; G47.33 Obstructive sleep apnea (adult) (pediatric); E11.42 Type 2 diabetes mellitus with diabetic polyneuropathy; E11.22 Type 2 diabetes mellitus with diabetic chronic kidney disease; J44.9 Chronic obstructive pulmonary disease, unspecified; N18.30 Chronic kidney disease, stage 3 unspecified; D63.1 Anemia in chronic kidney disease; Z20.822 Contact with and (suspected) exposure to COVID-19; E66.9 Obesity, unspecified; Z68.35 Body mass index [BMI] 35.0-35.9, adult; Z80.1 Family history of malignant neoplasm of trachea, bronchus and lung; M79.7 Fibromyalgia; Z79.4 Long term (current) use of insulin; Z79.899 Other long term (current) drug therapy; Z91.014 Allergy to mammalian meats; Z91.012 Allergy to eggs; Z91.011 Allergy to milk products; Z91.048 Other nonmedicinal substance allergy status; Z79.01 Long term (current) use of anticoagulants; Z79.51 Long term (current) use of inhaled steroids; X58.XXXA Exposure to other specified factors, initial encounter
CPT/HCPCS: 36415; 70450; 71045; 71250; 72125; 72128; 72131; 73110; 74176; 80048; 80053; 80307; 81003; 82550; 82948; 83880; 84484; 85025; 85610; 87502; 93005; 93306; 94618; 94640; 96365; 96367; 96375; 96376; 97110; 97162; 97165; 97530; 99285; A9270; G0378; J0456; J0692; J1940; J3480; J7040; U0003; U0005

== ENCOUNTER 2023-03-27 10:48 | Emergency (ER) | payer MEDICARE, SELFPAY ==
--- NOTE | ~2023-03-27 | XR_ITS ---
XR chest 2V DATE: 03/27/2023 11:31 INDICATION: Cough for 2 weeks. History of COPD. TECHNIQUE: 2 views COMPARISON: 08/13/2022 portable AP chest 02/11/2022 view chest FINDINGS: Cardiomegaly. Coronary artery calcification. Aortic arch calcification. No pulmonary infiltrate or consolidation, pleural effusion, pulmonary vascular congestion or pneumoth orax is evident. Intramedullary ho and screws of right humerus. Old healed left rib fractures. Osteopenia. Diffuse id iopathic skeletal hyperostosis of the thoracic spine. IMPRESSION: Cardiomegaly, coronary and aortic atherosclerosis No active pulmonary disease Reviewed, dictated and finalized at location A.
[2023-03-27 11:01] VITALS: BP 109/58; PULSE 69; RESP 20; TEMP 36.4; O2SAT 97
--- NOTE | 2023-03-27 11:10 | ED.URI ---
HPI - URI/Sore Throat General Chief Complaint: Upper Respiratory Infection Stated Complaint: cough Time Seen by Provider: 03/27/23 11:14 Source: patient Mode of arrival: ambulatory Limitations: no limitations History of Present Illness HPI Narrative: 72 y/o female with hx HTN, DM, COPD, and chronic respiratory failure with 2L O2 per NC presented for c/o cough for 2 weeks. Endorses wheezing, sob with exertion, fatigue, decreased appetite. Reports rib pain from the cough and difficulty recovering after the coughing fits. Patient has rescue inhaler which did not provide relief. Also used her daughter's nebulizer a few times since onset. Denies cp, palpitations, n/v/d/f/c. with a cough. Related Data Home Medications Medication Instructions Recorded Confirmed bisacodyl 5 mg tablet 5 mg PO DAILY PRN Constipation 10/28/20 03/27/23 furosemide 80 mg tablet 80 mg PO BID 10/28/20 03/27/23 cholecalciferol (vitamin D3) 50 50 mcg PO DAILY 08/31/22 03/27/23 mcg (2,000 unit) capsule metoprolol tartrate 50 mg tablet 100 mg PO BID 08/31/22 03/27/23 doxazosin 2 mg tablet 2 mg PO DAILY 10/20/22 03/27/23 insulin human U-100 NPH-regulr 27 unit subcut BID 10/20/22 03/27/23 70-30 mix 100 unit/mL subcutaneous susp (Novolin 70/30 U-100 Insulin) Allergies Allergy/AdvReac Type Severity Reaction Status Date / Time perfume Allergy Severe headache, Verified 03/27/23 11:10 sob Beef Containing Products Allergy Intermediate Joint Pain Verified 03/27/23 11:10 cigarette smoke Allergy Intermediate nausea, Verified 03/27/23 11:10 headache egg Allergy Intermediate stomach Verified 03/27/23 11:10 cramps metformin Allergy Intermediate Diarrhea Verified 03/27/23 11:10 nickel Allergy Intermediate Rash Verified 03/27/23 11:10 adhesive Allergy Unknown Unknown Verified 03/27/23 11:10 corn Allergy Unknown Gastrointestinal Verified 03/27/23 11:10 Upset lisinopril Allergy Unknown Unknown Verified 03/27/23 11:10 monosodium glutamate Allergy Unknown Unknown Verified 03/27/23 11:10 milk AdvReac Unknown Unknown Verified 03/27/23 11:10 wheat AdvReac Unknown bloating Verified 03/27/23 11:10 Review of Systems Review of Systems: CONSTITUTIONAL: Denies body aches, fever, chills, or sweats. EYES: Denies visual changes, redness, or discharge. ENT: Denies rhinorrhea, congestion, sore throat, or otalgia. CARDIOVASCULAR: Denies chest pain, palpitations, or edema. RESPIRATORY: Reports cough, sob, wheezing. GASTROINTESTINAL: Denies abdominal pain, nausea, vomiting, or diarrhea. GENITOURINARY: Denies dysuria or hematuria. SKIN: Denies rash, itching, or wounds. MUSCULOSKELETAL: Denies back pain, joint pain, or myalgia. NEUROLOGIC: Denies headache, numbness, tingling, or weakness. All systems reviewed & are unremarkable except as noted in HPI and below PMFSH Past Medical History Medical History Allergies Anxiety CHF (congestive heart failure) Chronic anemia Chronic kidney disease, stage 3 Chronic neck and back pain Chronic obstructive pulmonary disease PFTs 2014 demonstrated moderate restrictive lung disease and moderate to severe obstructive lung disease on chronic home O2 Chronic respiratory failure with hypoxia, on home O2 therapy Depression Diabetic peripheral neuropathy Diastolic heart failure Echocardiogram 2018 demonstrated moderate left ventricular hypertrophy, increased left ventricular filling pressures E/E of 17, EF 60%, grade 3 diastolic dysfunction, moderate pulmonary hypertension Edema of lower extremity due to peripheral venous insufficiency Essential hypertension FHx: migraine headaches Fibroid tumor Fibromyalgia Hemorrhoids Hypertension IDDM (insulin dependent diabetes mellitus) Kidney disease Mononucleosis Nonalcoholic steatohepatitis (ELI) GOPI (obstructive sleep apnea) Osteoporosis Paroxysmal atrial fibrillation Pulmonary hypertension Moderate pulmonary hype
== END 2023-03-27 12:18 | disposition home or self-care (01) ==
PROVIDERS: Emergency Provider Nurse Practitioner Family; PCP Family Medicine
DX: J44.1 Chronic obstructive pulmonary disease with (acute) exacerbation (principal); I13.0 Hypertensive heart and chronic kidney disease with heart failure and stage 1 through stage 4 chronic kidney disease, or unspecified chronic kidney disease; E11.22 Type 2 diabetes mellitus with diabetic chronic kidney disease; N18.30 Chronic kidney disease, stage 3 unspecified; I50.30 Unspecified diastolic (congestive) heart failure; Z79.4 Long term (current) use of insulin; E11.42 Type 2 diabetes mellitus with diabetic polyneuropathy; M79.7 Fibromyalgia; K75.81 Nonalcoholic steatohepatitis (NASH); I48.0 Paroxysmal atrial fibrillation; I27.20 Pulmonary hypertension, unspecified; E55.9 Vitamin D deficiency, unspecified; Z98.42 Cataract extraction status, left eye; Z98.41 Cataract extraction status, right eye; Z96.1 Presence of intraocular lens
CPT/HCPCS: 71046; 99213; G0463

== ENCOUNTER 2023-07-20 15:42 | Emergency (ER) | payer MEDICARE, SELFPAY ==
--- NOTE | 2023-07-20 15:56 | ED.WOUNDLAC ---
HPI - Wound/Laceration General Chief Complaint: Wound/Laceration Stated Complaint: Wound Lt Lower Leg Time Seen by Provider: 07/20/23 15:57 Source: patient Mode of arrival: ambulatory Limitations: no limitations History of Present Illness HPI narrative: 72-year-old female presents with complaint wound to lower extremity getting progressively worse for the past 3 weeks. Patient reports that both of her legs were very swollen approximately 3 weeks ago. Reports that she called her high court justice regarding swelling and was told to ?double up on her lasix ?. States that she was taking two 80 mg tablets twice a day. Was told to then take them as needed, ?use her best judgment ?. Patient states that lower legs were swollen today so she took to Lasix. Had outpatient labs checked today for her high court justice but is unaware of the results. States that she had 2 wounds that opened to left lower extremity when legs were significantly swollen 3 weeks ago. States that 1 healed and 1 continuously got worse. Has been applying [id number] antibiotic ointment. Reports mild pain. Afebrile. All systems reviewed and negative except as noted above. Related Data Home Medications Medication Instructions Recorded Confirmed bisacodyl 5 mg tablet 5 mg PO DAILY PRN Constipation 10/28/20 07/20/23 furosemide 80 mg tablet 80 mg PO BID 10/28/20 07/20/23 cholecalciferol (vitamin D3) 50 50 mcg PO DAILY 08/31/22 07/20/23 mcg (2,000 unit) capsule metoprolol tartrate 50 mg tablet 100 mg PO BID 08/31/22 07/20/23 insulin human U-100 NPH-regulr 27 unit subcut BID 10/20/22 07/20/23 70-30 mix 100 unit/mL subcutaneous susp (Novolin 70/30 U-100 Insulin) Allergies Allergy/AdvReac Type Severity Reaction Status Date / Time perfume Allergy Severe headache, Verified 07/20/23 15:53 sob Beef Containing Products Allergy Intermediate Joint Pain Verified 07/20/23 15:53 cigarette smoke Allergy Intermediate nausea, Verified 07/20/23 15:53 headache egg Allergy Intermediate stomach Verified 07/20/23 15:53 cramps metformin Allergy Intermediate Diarrhea Verified 07/20/23 15:53 nickel Allergy Intermediate Rash Verified 07/20/23 15:53 adhesive Allergy Unknown Unknown Verified 07/20/23 15:53 corn Allergy Unknown Gastrointestinal Verified 07/20/23 15:53 Upset lisinopril Allergy Unknown Unknown Verified 07/20/23 15:53 monosodium glutamate Allergy Unknown Unknown Verified 07/20/23 15:53 milk AdvReac Unknown Unknown Verified 07/20/23 15:53 wheat AdvReac Unknown bloating Verified 07/20/23 15:53 Review of Systems Review of Systems: CONSTITUTIONAL: Denies fever, chills, or sweats. EYES: Denies visual changes, redness, or discharge. ENT: Denies rhinorrhea, congestion, sore throat, or otalgia. CARDIOVASCULAR: Denies chest pain, palpitations, or edema. RESPIRATORY: Denies cough or dyspnea. GASTROINTESTINAL: Denies abdominal pain, nausea, vomiting, or diarrhea. GENITOURINARY: Denies dysuria or hematuria. SKIN: Reports open draining wound to left lower extremity. MUSCULOSKELETAL: Denies back pain, joint pain, or myalgia. NEUROLOGIC: Denies headache, numbness, or weakness. PSYCHIATRIC: Denies anxiety or depression. All other systems reviewed are negative, except as documented in HPI. [facility] Past Medical History Medical History Allergies Anxiety CHF (congestive heart failure) Chronic anemia Chronic kidney disease, stage 3 Chronic neck and back pain Chronic obstructive pulmonary disease PFTs 2013 demonstrated moderate restrictive lung disease and moderate to severe obstructive lung disease on chronic home O2 Chronic respiratory failure with hypoxia, on home O2 therapy Depression Diabetic peripheral neuropathy Diastolic heart failure Echocardiogram 2018 demonstrated moderate left ventricular hypertrophy, increased left ventricular filling pressures E/E of 17, EF 60%, grade 3 diastolic dysfunction, moderat
[2023-07-20 15:57] VITALS: BP 133/69; PULSE 80; RESP 16; TEMP 36.7; O2SAT 97
== END 2023-07-20 16:12 | disposition home or self-care (01) ==
PROVIDERS: Emergency Provider Nurse Practitioner Family; PCP Family Medicine
DX: L97.821 Non-pressure chronic ulcer of other part of left lower leg limited to breakdown of skin (principal); I13.0 Hypertensive heart and chronic kidney disease with heart failure and stage 1 through stage 4 chronic kidney disease, or unspecified chronic kidney disease; E11.22 Type 2 diabetes mellitus with diabetic chronic kidney disease; N18.30 Chronic kidney disease, stage 3 unspecified; I50.30 Unspecified diastolic (congestive) heart failure; Z79.4 Long term (current) use of insulin; J44.9 Chronic obstructive pulmonary disease, unspecified; E11.42 Type 2 diabetes mellitus with diabetic polyneuropathy; M79.7 Fibromyalgia; K75.81 Nonalcoholic steatohepatitis (NASH); M81.0 Age-related osteoporosis without current pathological fracture; I48.0 Paroxysmal atrial fibrillation; I27.20 Pulmonary hypertension, unspecified; E55.9 Vitamin D deficiency, unspecified; Z98.42 Cataract extraction status, left eye; Z98.41 Cataract extraction status, right eye; Z96.1 Presence of intraocular lens
CPT/HCPCS: 99213; G0463

== ENCOUNTER 2023-08-04 12:49 | Outpatient (RCR) | payer MEDICARE, SELFPAY ==
[2023-08-04 13:31] VITALS: BMI 33.5
== END 2023-10-24 08:39 | disposition home or self-care (01) ==
LOC: ANHWOC 12:49
PROVIDERS: PCP Family Medicine; Visit Provider Nurse Practitioner Family
DX: S81.802D Unspecified open wound, left lower leg, subsequent encounter (principal)
CPT/HCPCS: 99212; G0463

== ENCOUNTER 2023-08-22 14:51 | Outpatient (CLI) | payer MEDICARE, SELFPAY ==
[2023-08-22 15:00] VITALS: PULSE 74; O2SAT 88
[2023-08-22 15:05] VITALS: PULSE 78; O2SAT 90
[2023-08-22 15:15] VITALS: PULSE 98; O2SAT 91
[2023-08-22 15:20] VITALS: PULSE 79; O2SAT 93
--- NOTE | 2023-08-22 16:04 | HOMEO2EVAL ---
Evaluation was performed at [facility] Home Oxygen Evaluation RC: Home Oxygen (O2) Evaluation Start: 08/22/23 15:58 Freq: Status: Active Protocol: RPE Activity Type Activity Date Activity User E-sign Co-sign Detail Recorded Client Recorded Date Recorded By Document 08/22/23 15:00 PK [id number]_012 08/22/23 16:04 PK Document 08/22/23 15:05 PK [email or web address] 08/22/23 16:04 PK Document 08/22/23 15:15 [facility] [email or web address] 08/22/23 16:04 [facility] Document 08/22/23 15:20 [facility] [id number] 08/22/23 16:04 [facility] 08/22/23 08/22/23 08/22/23 15:00 15:05 15:15 Home O2 Evaluation [Oxygen] -Test Phase Resting Resting Exercise -Oxygen Delivery Room Air Nasal Cannula Nasal Cannula -Oxygen Flow Rate (L/min) 2 2 [Pulse Oximetry] -Pulse Oximetry (90-100 %) 88 L 90 91 [Pulse Rate] -Pulse Rate (60-100 beats/min) 74 78 98 [Charges] -Treatment Charges O2 Evaluation - Outpatient 08/22/23 15:20 Home O2 Evaluation [Oxygen] -Test Phase Resting -Oxygen Delivery Nasal Cannula -Oxygen Flow Rate (L/min) 2 [Pulse Oximetry] -Pulse Oximetry (90-100 %) 93 [Pulse Rate] -Pulse Rate (60-100 beats/min) 79 [Charges] -Treatment Charges
--- NOTE | 2023-08-22 16:05 | PCRCNOTE ---
OUT PATIENT HOME O2 EVAL COMPLETE. PATIENTREMAINS ON CURRENT SETTING OF 2LPM.
--- NOTE | 2023-08-27 22:41 | WPDPFTINT ---
PFT Procedure Performed PFT Procedure Performed Spirometry with Pre/Post Bronchodilator Plethysmography (Lung Vol) Diffusing Cap (DLCO) Flow Vol Loop PFT Interpretation DOS: 08/22/2023 REQUESTING: Corrine Sanchez PA-C REASON FOR TESTING: COPD, chronic respiratory failure PULMONARY FUNCTION TESTS Results are reliable and reproducible. Spirometry: FEV1 1.15 L, 48% predicted, decreased. FVC is 1.73 L, 55% predicted, decreased. FEV1/FVC ratio is 67% predicted, normal. After bronchodilator administration there is 4% increase in the FEV1 and 8% increase in the FVC. These are not statistically significant changes. Lung volumes: Total lung capacity is 3.89 L, 69% predicted, consistent with mild restriction. The residual volume is 2.16 L, 88% predicted, normal. RV/TLC is 56%, elevated, consistent with air trapping. The airway resistance is 4.89, 351% predicted, increased. Diffusion: DLCO is 9.4, 43% predicted, moderately reduced. DLCO/VA is 3.32 L, 82%, normal. Flow volume loop: Flow volume loop shows a restrictive pattern with mild coving of the bronchodilator. IMPRESSION: This study shows mild restriction, no overt airflow obstruction, moderate to severe diffusion impairment which corrects for alveolar volume. Lack of response to bronchodilator should not preclude use of clinically indicated. A prior study on 12/28/2013 showed decreased FEV1 and FVC with a normal FEV1/ FVC ratio, reversibility noted after bronchodilator, decreased total lung capacity but increased RV/TLC with increased airway resistance. DLCO markedly decreased. This was interpreted as a moderate restrictive and moderately severe obstructive ventilatory defect with a good response to bronchodilator, marked decreased in DLCO. She has had progression of the same patterns on this study. The new normal ranges are larger now, allowing values that were once abnormal to be interpreted as normal. Comparing her old study with the new results, she has the same processes present. Kira Jung MD
== END 2023-08-22 14:52 | disposition home or self-care (01) ==
LOC: ANHPFT 14:52
PROVIDERS: PCP Family Medicine; Visit Provider Physician Assistant
DX: J96.11 Chronic respiratory failure with hypoxia (principal); J44.9 Chronic obstructive pulmonary disease, unspecified; Z99.81 Dependence on supplemental oxygen
CPT/HCPCS: 94060; 94618; 94726; 94729

== ENCOUNTER 2023-11-02 23:03 | Emergency (ER) | payer MEDICARE, SELFPAY ==
--- NOTE | ~2023-11-02 | XR_ITS ---
Left Knee Technique: AP, lateral, and sunrise views were obtained. Clinical History: Pain Findings: No fracture or dislocation is seen. Osseous alignment is anatomic. Joint spaces are preserv ed without degenerative or erosive change. Chondrocalcinosis of menisci noted. Moderate joint effusio n is seen. Impression: Chondrocalcinosis of the menisci. Moderate joint effusion. Reviewed, dictated and finalized at location M. [facility]KER Impression: Chondrocalcinosis of the menisci. Moderate joint effusion.
[2023-11-02 23:07] VITALS: BP 132/62; PULSE 75; RESP 15; TEMP 36.7; O2SAT 93
[2023-11-03 00:21] VITALS: BP 150/69; PULSE 76; RESP 15; O2SAT 100
--- NOTE | 2023-11-03 02:32 | ED.GENADULT ---
HPI - General Adult General Chief complaint: Fall Stated complaint: GLF Time Seen by Provider: 11/03/23 01:34 History of Present Illness HPI narrative: This is a 73-year-old female with history of COPD on home oxygen presenting after a fall. She tripped over oxygen tubing and landed on her left knee. She required some help from EMS to get back up. The patient has been able to ambulate and bear weight. She took 1 Motrin for pain control. No head trauma or other injuries. Related Data Home Medications Medication Instructions Recorded Confirmed bisacodyl 5 mg tablet 5 mg PO DAILY PRN Constipation 10/28/20 10/31/23 furosemide 80 mg tablet 80 mg PO BID 10/28/20 10/31/23 insulin human U-100 NPH-regulr 25 unit subcut BID 10/20/22 10/31/23 70-30 mix 100 unit/mL subcutaneous susp (Novolin 70/30 U-100 Insulin) Allergies Allergy/AdvReac Type Severity Reaction Status Date / Time perfume Allergy Severe headache, Verified 10/31/23 14:07 sob Beef Containing Products Allergy Intermediate Joint Pain Verified 10/31/23 14:07 cigarette smoke Allergy Intermediate nausea, Verified 10/31/23 14:07 headache egg Allergy Intermediate stomach Verified 10/31/23 14:07 cramps metformin Allergy Intermediate Diarrhea Verified 10/31/23 14:07 nickel Allergy Intermediate Rash Verified 10/31/23 14:07 adhesive Allergy Unknown Unknown Verified 10/31/23 14:07 corn Allergy Unknown Gastrointestinal Verified 10/31/23 14:07 Upset lisinopril Allergy Unknown Cough Verified 10/31/23 14:07 monosodium glutamate Allergy Unknown Unknown Verified 10/31/23 14:07 acetaminophen [From Tylenol] AdvReac Mild Abdominal Verified 10/31/23 14:07 Pain milk AdvReac Unknown Unknown Verified 10/31/23 14:07 wheat AdvReac Unknown bloating Verified 10/31/23 14:07 COUNTS INCLUDE 234 BEDS AT THE [facility] Past Medical History Medical History Allergies Anxiety CHF (congestive heart failure) Chronic anemia Chronic kidney disease, stage 3 Chronic neck and back pain Chronic obstructive pulmonary disease PFTs 2013 demonstrated moderate restrictive lung disease and moderate to severe obstructive lung disease on chronic home O2 Chronic respiratory failure with hypoxia, on home O2 therapy Depression Diabetic peripheral neuropathy Diastolic heart failure Echocardiogram 2018 demonstrated moderate left ventricular hypertrophy, increased left ventricular filling pressures E/E of 17, EF 60%, grade 3 diastolic dysfunction, moderate pulmonary hypertension Edema of lower extremity due to peripheral venous insufficiency Essential hypertension FHx: migraine headaches Fibroid tumor Fibromyalgia Hemorrhoids Hypertension IDDM (insulin dependent diabetes mellitus) Kidney disease Mononucleosis Nonalcoholic steatohepatitis (ELI) GOPI (obstructive sleep apnea) Osteoporosis Paroxysmal atrial fibrillation Pulmonary hypertension Moderate pulmonary hypertension noted on echo 2018 Venous stasis ulcer (~08/2023) Vitamin B12 deficiency Vitamin D deficiency Surgical History Surgical History H/O cardiac radiofrequency ablation H/O lumbar discectomy (~1982) History of cardioversion History of hysterectomy (~1994) History of shoulder surgery right- 2007 History of tonsillectomy (~1957) Status post cataract extraction of both eyes with insertion of intraocular lens (~2014) Status post open reduction with internal fixation of fracture (~2015) Right elbow fracture Family History Family History Father Family history of lung cancer, Onset Age: 68 Rectal cancer Hypertension Heart disease Sibling Family history of arthritis Malignant neoplasm of prostate Hypertension Mother Family history of Alzheimer's disease, Onset Age: 92 Heart disease Hypertension Grandparent Cerebrovascular accident, Onset Age: 88
== END 2023-11-03 03:00 | disposition home or self-care (01) ==
PROVIDERS: Emergency Provider Emergency Medicine; PCP Family Medicine
DX: S89.92XA Unspecified injury of left lower leg, initial encounter (principal); I13.0 Hypertensive heart and chronic kidney disease with heart failure and stage 1 through stage 4 chronic kidney disease, or unspecified chronic kidney disease; I50.30 Unspecified diastolic (congestive) heart failure; E11.22 Type 2 diabetes mellitus with diabetic chronic kidney disease; N18.30 Chronic kidney disease, stage 3 unspecified; E11.42 Type 2 diabetes mellitus with diabetic polyneuropathy; J44.9 Chronic obstructive pulmonary disease, unspecified; J96.11 Chronic respiratory failure with hypoxia; Z99.81 Dependence on supplemental oxygen; D64.9 Anemia, unspecified; G47.33 Obstructive sleep apnea (adult) (pediatric); I48.0 Paroxysmal atrial fibrillation; M81.0 Age-related osteoporosis without current pathological fracture; E53.8 Deficiency of other specified B group vitamins; E55.9 Vitamin D deficiency, unspecified; E66.9 Obesity, unspecified; Z68.33 Body mass index [BMI] 33.0-33.9, adult; Z90.710 Acquired absence of both cervix and uterus; Z96.1 Presence of intraocular lens; Z98.42 Cataract extraction status, left eye; Z98.41 Cataract extraction status, right eye; Z79.4 Long term (current) use of insulin; W18.09XA Striking against other object with subsequent fall, initial encounter
CPT/HCPCS: 73564; 99283

== ENCOUNTER 2024-05-17 13:17 | Outpatient (CLI) | payer MEDICARE, SELFPAY ==
--- NOTE | ~2024-05-17 | MMUS_ITS ---
EXAMINATION: MM diagnostic inge BI w kasey, US breast RT limited HISTORY: Palpable right breast mass TECHNIQUE: Additional 3-D tomosynthesis images of the breasts were performed and synthetic 2-D images were generated. CAD analysis was submitted and interpreted. High resolution Limited right breast ult rasound was performed. COMPARISON: None BREAST PARENCHYMAL COMPOSITION: Not dense: There are scattered areas of fibroglandular density. FINDINGS: MAMMOGRAPHIC FINDINGS: There is a mass in the lower central aspect of the right breast, best seen on the medial lateral view posteriorly. There are benign calcifications bilaterally. No evidence for malignancy in the left alireza ast. ULTRASOUND: Limited right breast ultrasound: At 5:00, 10 cm from the nipple there is an irregular shaped hypoecho ic mass with angular margins measuring 5.1 x 3.7 x 2.7 cm with mixed posterior attenuation and no int ernal vascularity. IMPRESSION: 1. Irregular shaped 5.1 cm right breast mass at 5:00, 10 cm from the nipple. 2. Ultrasound-guided right breast biopsy recommended. BI-RADS category 5, highly suggestive of malignancy. Reviewed, dictated and finalized at location B. IMPRESSION: 1. Irregular shaped 5.1 cm right breast mass at 5:00, 10 cm from the nipple. 2. Ultrasound-guided right breast biopsy recommended. BI-RADS category 5, highly suggestive of malignancy.
== END 2024-05-17 13:18 | disposition home or self-care (01) ==
PROVIDERS: PCP Family Medicine; Visit Provider Student in an Organized Health Care Education/Training Program
DX: N63.15 Unspecified lump in the right breast, overlapping quadrants (principal); R92.8 Other abnormal and inconclusive findings on diagnostic imaging of breast
CPT/HCPCS: 76642; 77062; 77066; G0279

== ENCOUNTER 2024-05-31 14:07 | Outpatient (CLI) | payer MEDICARE, SELFPAY ==
--- NOTE | ~2024-05-31 | MM_ITS ---
Corrected Report See bolded text 06/01/2024 [facility] This report was recreated on 06/01/2024. Original report was signed by Milton Harrell M.D. on 05/31/2024 15:52 CDT . MM post biopsy diagnostic RT 05/31/2024 15:22 Indication: Postbiopsy mammogram performed for marker placement Procedure: Digital diagnostic right mammogram Comparison: No prior studies for comparison. Breast Parenchymal Composition: Dense: The breasts are heterogeneously dense, which may obscure small masses. Findings: Biopsy performed post biopsy for tissue marker placement. Tissue marker located in the lower inner quadrant of the right breast posteriorly. Impression: 1: Status post recent right breast biopsy with post procedure mammogram for maker placement within the mass in the lower inner quadrant. Reviewed, dictated and finalized at location B. MTDD Impression: 1: Status post recent right breast biopsy with tissue marker placement within t he mass in the lower inner quadrant.
--- NOTE | 2024-05-31 14:51 | WPDBIOPSY ---
Biopsy Procedure Date of Procedure 05/31/24 Indication Right breast mass, BIRADS 5 Impression Right breast mass, suspicious for malignancy Procedure Performed Procedure Performed: US Breast Biopsy with Imaging Surgeon Shaye Gonsalez MD Anesthesia Anesthesia: Local Description of Procedure Description of Procedure: Risk of the procedure were discussed with the patient which included but not limited to risk of bleeding, infection, possible need for repeat biopsy or additional procedures in the future, bruising, hematoma,etc. Benefits and alternatives to procedure were discussed as well. Consent was obtained and a time out was performed. The right breast mass was identified using the US at 5 o'clock position 10 cm from the nipple, and lidocaine with epinephrine was used to anesthetize the skin and tissue surrounding the mass under US guidance. A 10g vacuum assisted device was used to obtain 4 core biopsy specimens under US guidance. An Inrad tissue marker clip was then placed at the biopsy site under US guidance. Pressure was held over the area for 10 minutes with excellent hemostasis. Core needle specimens were sent to pathology in formalin. Patient tolerated the procedure well with no immediate complications. A post-procedure right mammogram was obtained to confirm the tissue marker clip placement.
== END 2024-05-31 14:08 | disposition home or self-care (01) ==
PROVIDERS: PCP Family Medicine; Visit Provider Surgery
DX: C50.311 Malignant neoplasm of lower-inner quadrant of right female breast (principal); Z17.0 Estrogen receptor positive status [ER+]
CPT/HCPCS: 19083; 77065; 88305; 88360; 88365; A4648